=== PATIENT | male | born 1955 | race African-American/Black ===

== ENCOUNTER 2020-11-24 16:54 | Emergency (ER) | payer OTHER ==
--- OUTSIDE RECORDS SUMMARY | 2020-11-24 16:57 | XMS REPORT | Continuity of Care Document ---
:1955 Author Organization [facility] t Address [address] [place] [address] Care Team Providers Name Role Phone Elissa DUKES Primary Care Physician Unavailable Joseph CERVANTES Attending Clinician Unavailable Tavares BASS, A Attending Clinician King SHELIA, Dion Attending Clinician Payers Payer Name Policy Type Policy Number Effective Date Expiration Date S [facility] MEDICARE PART A AND [id number] 2010 B 00:00:00 [place]ICAID [place] [id number] 2012 [employer] 00:00:00 NON SSI Problems This patient has no known problems. Allergies, Adverse Reactions, Alerts This patient has no known allergies or adverse reactions. Medications This patient has no known medications. Vital Signs Vital Name Observation Time Observation Value Comments Source WEIGHT 2020-09-18 11:08:08 135.7 kg Procedures This patient has no known procedures. Encounters Start End Encounter Admission Attending Care Care Encounter Source Date/Time Date/Time Type Type Clinicians Facility Department ID 2020-09-18 2020-09-18 Outpatient NENO CERVANTES MDA MDA [id number] 10:00:00 23:59:00 ORALIA márquez 2020-09-18 2020-09-18 Outpatient NENO CERVANTES MDA MDA [id number] 10:49:19 11:32:41 ORALIA pritchett n 2020-01-11 2020-01-11 [facility] IVONNE Cahpin [id number] 07:56:08 10:29:17 ne Visit Oralia Le [id number] [place] [id number] [facility] [phone] [facility] 231 [facility] 2020-01-02 2020-01-02 [facility] [id number] 00:00:00 00:00:00 [place] [id number] [place] [id number] Professio [phone] critical access hospital 044 [facility] 2019-12-25 2019-12-25 [facility] [id number] 00:00:00 00:00:00 [place] [id number] [place] [id number] Professio [phone] [address] 2019-04-25 2019-04-25 [facility] [id number] 00:00:00 00:00:00 C [place] [id number] [place] [id number] [phone] [id number] Results This patient has no known results.
[2020-11-24] MEDS ORDERED: NA CHLORIDE 0.9% 1,000 ML ONE (19:55)
[2020-11-24] MEDS ORDERED: ONDANSETRON 4 MG/2 ML VIAL ONE (19:55)
[2020-11-24 20:15] LABS: Absolute Lymphocytes (CBC) 0.1 K/uL (0.7-4.9); Basophils % 0.3 % (0-1.3); Hematocrit 43.2 % (39.6-49.0); Lymphocytes % 1.7 % (15.3-44.8)
[2020-11-24 20:20] LABS: Albumin 3.5 g/dL (3.4-5.0); Bilirubin Direct 0.3 mg/dL (0-0.2); Bilirubin Total 1.1 mg/dL (0.2-1.0); Potassium 3.9 mmol/L (3.5-5.1); Protein, Total 7.7 g/dL (6.4-8.2)
--- NOTE | 2020-11-24 20:56 | EDPHYS ---
Physician Documentation [facility] Name: Marbin Montero Age: 65 yrs Sex: Male : 1955 Arrival Date: 11/24/2020 Time: 16:56 Bed 27 Private MD: ALICIA JACKSON ED Physician Cristiano Mayer HPI: 11/24 20:10 This 65 yrs old Black Male presents to ER via Wheelchair with complaints of kb Vomiting/Diarrhea. 20:10 The patient presents to the emergency department with nausea, vomiting, diarrhea. kb Onset: The symptoms/episode began/occurred yesterday. Possible causes: unknown. The symptoms are aggravated by nothing. The symptoms are alleviated by nothing. Associated signs and symptoms: Pertinent positives: diarrhea, nausea, vomiting. Severity of symptoms: At their worst the symptoms were moderate in the emergency department the symptoms are unchanged. The patient has not experienced similar symptoms in the past. The patient has not recently seen a physician. Pt reports n/v/d since yesterday. States it seems like he is passing water from his rearend and when he vomits it looks like water too. Denies abd pain or fever. Historical: - Allergies: 17:39 No Known Allergies; ca1 - Home Meds: 17:39 lisinopril 10 mg Oral tab 2 tabs once daily [Active]; atorvastatin 40 mg oral tab 1 tab ca1 once daily [Active]; Xarelto 20 mg oral tab 1 tab once daily [Active]; metoprolol tartrate 100 mg Oral tab 1 tab 2 times per day [Active]; levothyroxine 50 mcg tab 1 tab once daily [Active]; - PMHx: 17:39 Hypertension; High Cholesterol; Thyroid problem; ca1 - Immunization history:: Flu vaccine is not up to date. - Social history:: Smoking status: Patient denies any tobacco usage or history of. ROS: 20:12 Constitutional: Negative for fever, chills, and weight loss, Cardiovascular: Negative kb for chest pain, palpitations, and edema, Respiratory: Negative for shortness of breath, cough, wheezing, and pleuritic chest pain, Back: Negative for injury and pain, MS/Extremity: Negative for injury and deformity, Skin: Negative for injury, rash, and discoloration, Neuro: Negative for headache, weakness, numbness, tingling, and seizure. 20:12 Abdomen/GI: Positive for nausea, vomiting, and diarrhea, Negative for abdominal pain. Exam: 20:12 Constitutional: This is a well developed, well nourished patient who is awake, alert, kb and in no acute distress. Head/Face: Normocephalic, atraumatic. Chest/axilla: Normal chest wall appearance and motion. Cardiovascular: Regular rate and rhythm with a normal S1 and S2. No gallops, murmurs, or rubs. No pulse deficits. Respiratory: Lungs have equal breath sounds bilaterally, clear to auscultation. No rales, rhonchi or wheezes noted. No increased work of breathing, no retractions or nasal flaring. Abdomen/GI: Soft, non-tender, with normal bowel sounds. No distension. No guarding or rebound. No evidence of tenderness throughout. Skin: Warm, dry with normal turgor. Normal color with no rashes, no lesions, and no evidence of cellulitis. MS/ Extremity: Pulses equal, no cyanosis. Neurovascular intact. Full, normal range of motion. Neuro: Awake and alert, GCS 15, oriented to person, place, time, and situation. Cranial nerves II-XII grossly intact. Moves all extremities. Sensory grossly intact. Cerebellar exam normal. Normal gait. Vital Signs: 17:34 BP 93 / 66; Pulse 82; Resp 16 S; Temp 97.6(TE); Pulse Ox 96% on R/A; Weight 133.81 kg ca1 (R); Height 6 ft. 2 in. (187.96 cm) (R); Pain 0/10; 20:34 BP 96 / 73; Pulse 80; Resp 19; Pulse Ox 99% ; rr5 21:20 BP 101 / 62; Pulse 85; Resp 17; Pulse Ox 99% ; rr5 17:34 Body Mass Index 37.88 (133.81 kg, 187.96 cm) ca1 MDM: 18:57 Patient medically screened. kb 20:11 Data reviewed: vital signs, nurses notes. Data interpreted: Pulse oximetry: on room air kb is 96 %. Interpretation: normal. 20:31 Counseling: I had a detailed discussion with the patient and/or guardian regarding: the kb historical points, exam findings, and any diagnostic results supporting the discharge/admit diagnosis, lab results, the need for outpatient follow up, a family practitioner, to return to the emergency department if symptoms worsen or persist or if there are any questions or concerns that arise at home. 11/24 19:32 Order name: Basic Metabolic Panel 11/24 19:32 Order name: CBC with Diff kb 11/24 19:32 Order name: Hepatic Function kb 11/24 19:32 Order name: Lipase kb 11/24 20:20 Order name: Basic Metabolic Panel; Complete Time: 20:21 EDMS 11/24 20:20 Order name: Liver (Hepatic) Function; Complete Time: 20:21 EDMS 11/24 19:32 Order name: IV Saline Lock; Complete Time: 20:06 kb 11/24 19:32 Order name: Labs collected and sent; Complete Time: 20: kb 11/24 20:20 Order name: Lipase; Complete Time: 20:21 EDMS 11/24 20:24 Order name: CBC with Automated Diff EDMS Administered Medications: 20:00 Drug: NS 0.9% 1000 ml Route: IV; Rate: 1000 ml; Site: right wrist; rr5 21:05 Follow up: Response: No adverse reaction; IV Status: Completed infusion; IV Intake: rr5 1000ml 20:00 Drug: Zofran (Ondansetron) 4 mg Route: IVP; Site: right wrist; rr5 21:00 Follow up: Response: No adverse reaction rr5 Disposition: 11/25 19:56 Co-signature as Attending Physician, Cristiano Mayer MD I agree with the assessment and armand plan of care. Disposition: 11/24/20 20:55 Discharged to Home. Impression: Nausea and vomiting, Diarrhea, unspecified. - Condition is Stable. - Discharge Instructions: Viral Gastroenteritis, Adult, Cluy-tx-Gvki, Nausea and Vomiting, Adult, Uxcc-pb-Whhm, Diarrhea, Adult, Gdqc-wh-Havm. - Prescriptions for Zofran 4 mg Oral Tablet - take 1 tablet by ORAL route every 6 hours As needed; 20 tablet. - Medication Reconciliation Form, Thank You Letter, Antibiotic Education, Prescription Opioid Use form. - Follow up: Emergency Department; When: As needed; Reason: Worsening of condition. Follow up: Private Physician; When: 2 - 3 days; Reason: Recheck today's complaints, Continuance of care, Re-evaluation by your physician. Signatures: Dispatcher [employer] EDOra Dye FNP-C SIGNAL WORKER HELPER-Cristiano Bermeo MD MD cha Roque, Raymond, RN RN rr5 Lauryn Page RN RN ca1 Corrections: (The following items were deleted from the chart) 11/24 21:25 20:55 11/24/2020 20:55 Discharged to Home. Impression: Nausea and vomiting; Diarrhea, rr5 unspecified. Condition is Stable. Discharge Instructions: Viral Gastroenteritis, Adult, Niwf-cx-Yffi, Nausea and Vomiting, Adult, Rmib-xj-Mqst, Diarrhea, Adult, Yfeh-nh-Uapv. Prescriptions for Zofran 4 mg Oral Tablet - take 1 tablet by ORAL route every 6 hours As needed; 20 tablet. and Forms are Medication Reconciliation Form, Thank You Letter, Antibiotic Education, Prescription Opioid Use. Follow up: Emergency Department; When: As needed; Reason: Worsening of condition. Follow up: Private Physician; When: 2 - 3 days; Reason: Recheck today's complaints, Continuance of care, Re-evaluation by your physician. kb
--- NOTE | 2020-11-24 20:56 | ER ---
Nurse's Notes [facility] Name: Marbin Montero Age: 65 yrs Sex: Male : 1955 Arrival Date: 11/24/2020 Time: 16:56 Bed 27 Private MD: ALICIA JACKSON Diagnosis: Nausea and vomiting;Diarrhea, unspecified Presentation: 11/24 17:34 Chief complaint: Patient states: Vomiting and diarrhea started this morning. ca1 Coronavirus screen: Client denies travel out of the [place] in the last 14 days. diarrhea, vomiting. Client presents with at least one sign or symptom that may indicate coronavirus-19. Standard/surgical mask placed on the client. Provider contacted for isolation considerations. Ebola Screen: Patient negative for fever greater than or equal to 101.5 degrees Fahrenheit, and additional compatible Ebola Virus Disease symptoms Patient denies exposure to infectious person. Patient denies travel to an Ebola-affected area in the 21 days before illness onset. No symptoms or risks identified at this time. Initial Sepsis Screen: Does the patient meet any 2 criteria? No. Patient's initial sepsis screen is negative. Does the patient have a suspected source of infection? No. Patient's initial sepsis screen is negative. Risk Assessment: Do you want to hurt yourself or someone else? Patient reports no desire to harm self or others. Onset of symptoms was November 24, 2020. 17:34 Method Of Arrival: Wheelchair ca1 17:34 Acuity: OSCAR 3 ca1 Historical: - Allergies: 17:39 No Known Allergies; ca1 - Home Meds: 17:39 lisinopril 10 mg Oral tab 2 tabs once daily [Active]; atorvastatin 40 mg oral tab 1 tab ca1 once daily [Active]; Xarelto 20 mg oral tab 1 tab once daily [Active]; metoprolol tartrate 100 mg Oral tab 1 tab 2 times per day [Active]; levothyroxine 50 mcg tab 1 tab once daily [Active]; - PMHx: 17:39 Hypertension; High Cholesterol; Thyroid problem; ca1 - Immunization history:: Flu vaccine is not up to date. - Social history:: Smoking status: Patient denies any tobacco usage or history of. Screenin:30 Abuse screen: Denies threats or abuse. Denies injuries from another. Nutritional rr5 screening: No deficits noted. Tuberculosis screening: No symptoms or risk factors identified. Fall Risk IV access (20 points). Total Bonner Fall Scale indicates No Risk (0-24 pts). Assessment: 19:30 General: Appears in no apparent distress. comfortable, Behavior is calm, cooperative, rr5 appropriate for age. Pain: Denies pain. Neuro: Level of Consciousness is awake, alert, obeys commands, Oriented to person, place, time. Cardiovascular: Capillary refill < 3 seconds Patient's skin is warm and dry. Respiratory: Airway is patent Respiratory effort is even, unlabored, Respiratory pattern is regular, symmetrical. GI: Abdomen is round non-distended, Reports diarrhea, vomiting. : No signs and/or symptoms were reported regarding the genitourinary system. EENT: No signs and/or symptoms were reported regarding the EENT system. Derm: Skin is intact, is healthy with good turgor, Skin temperature is warm. Musculoskeletal: Capillary refill < 3 seconds. 20:34 Reassessment: Patient appears in no apparent distress at this time. Patient is alert, rr5 oriented x 3, equal unlabored respirations, skin warm/dry/pink. awaiting for results. 21:20 Reassessment: Patient appears in no apparent distress at this time. Patient is alert, rr5 oriented x 3, equal unlabored respirations, skin warm/dry/pink. discharge instruction given and explained without complaints made. Vital Signs: 17:34 BP 93 / 66; Pulse 82; Resp 16 S; Temp 97.6(TE); Pulse Ox 96% on R/A; Weight 133.81 kg ca1 (R); Height 6 ft. 2 in. (187.96 cm) (R); Pain 0/10; 20:34 BP 96 / 73; Pulse 80; Resp 19; Pulse Ox 99% ; rr5 21:20 BP 101 / 62; Pulse 85; Resp 17; Pulse Ox 99% ; rr5 17:34 Body Mass Index 37.88 (133.81 kg, 187.96 cm) ca1 ED Course: 16:56 Patient arrived in ED. am2 16:56 ALICIA JACKSON is Private Physician. am2 17:36 Triage completed. ca1 17:39 Arm band placed on right wrist. ca1 18:26 Ora Renteria FNP-C [facility]. kb 18:26 Cristiano Mayer MD is Attending Physician. kb 19:30 Patient has correct armband on for positive identification. Placed in gown. Bed in low rr5 position. Call light in reach. Pulse ox on. NIBP on. 19:35 Solomon Maurer, RN is Primary Nurse. rr5 20:00 Inserted saline lock: 20 gauge in right wrist, using aseptic technique. Blood collected.rr5 21:24 No provider procedures requiring assistance completed. IV discontinued, intact, rr5 bleeding controlled, No redness/swelling at site. Pressure dressing applied. Administered Medications: 20:00 Drug: NS 0.9% 1000 ml Route: IV; Rate: 1000 ml; Site: right wrist; rr5 21:05 Follow up: Response: No adverse reaction; IV Status: Completed infusion; IV Intake: rr5 1000ml 20:00 Drug: Zofran (Ondansetron) 4 mg Route: IVP; Site: right wrist; rr5 21:00 Follow up: Response: No adverse reaction rr5 Intake: 21:05 IV: 1000ml; Total: 1000ml. rr5 Outcome: 20:55 Discharge ordered by MD. kb 21:24 Discharged to home ambulatory. rr5 21:24 Condition: stable 21:24 Discharge instructions given to patient, Instructed on discharge instructions, follow up and referral plans. medication usage, Demonstrated understanding of instructions, follow-up care, medications, Prescriptions given X 1. 21:25 Patient left the ED. rr5 Signatures: Ora Renteria, PRE PRESS MANAGER-C PRE PRESS MANAGER-CkJessica Ryan am2 Solomon Maurer, RN RN rr5 Lauryn Page RN RN ca1
[2020-11-24 21:35] LABS: Blood Morphology Comment NOT SEEN (NOT SEEN); Platelet Estimate DECR; White Blood Cell Scan OK (OK)
[2020-11-24 22:57] VITALS: TEMP 97.6
[2020-11-24 22:58] VITALS: BP 96/73; O2SAT 99
== END 2020-11-24 21:25 | disposition home or self-care (01) ==
LOC: ER 16:54
DX: R19.7 Diarrhea, unspecified (principal); I10 Essential (primary) hypertension; E78.00 Pure hypercholesterolemia, unspecified; E07.9 Disorder of thyroid, unspecified; Z79.01 Long term (current) use of anticoagulants
CPT/HCPCS: 96361; 85025; 80048; 36415; 80076; 83690; 96374; 99284; J7030; J2405

== ENCOUNTER 2022-02-22 18:35 | Inpatient (IN) | payer OTHER ==
--- OUTSIDE RECORDS SUMMARY | 2022-02-22 18:39 | XMS REPORT | Continuity of Care Document ---
:1955 Author Organization [facility] t Address [address] [place] [address] Care Team Providers Name Role Phone [phone] Primary Care Physician Unavailable Bhumi CHAPIN Attending Clinician Unavailable Joseph CERVANTES Attending Clinician Unavailable Bhumi Chapin MD Attending Clinician TEJAL Attending Clinician Unavailable KEIRA Attending Clinician Unavailable Dion Bonilla MD Attending Clinician Payers Payer Name Policy Type Policy Number Effective Date Expiration Date S ource MEDICARE PART A AND [id number] 2010 B 00:00:00 [place]ICAID [place] [id number] 2012 TRADITIONAL STAR 00:00:00 NON SSI MEDICARE PART A \T\ [id number] 2010 B 00:00:00 MEDICAID [facility] [id number] 2018 00:00:00 Problems Condition Condition Condition Status Onset Resolution Last Treating Co mments Source Name Details Category Date Date Treatment Clinician Date 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 09-23 ity of 00:00: [place] [facility] Hyperlipid Hyperlipid Disease Active 0 U nivers emia emia 09-23 ity of 00:00: [place] [facility] Hypertensi Hypertensi Disease Active 2021-0 U nivers on on 09-23 ity of 00:00: [place] [facility] Thyroid Thyroid Disease Active Univers disease disease 09-23 ity of 00:00: [place] [facility] [place] Atrial Atrial Disease Active Univers fibrillati fibrillati 09-23 it y of on on 00:00: [place] [facility] Hypothyroi Hypothyroi Disease Active U nivers dism dism -04 ity of (acquired) (acquired) 00:00: [place] [address] Medical [place] Allergies, Adverse Reactions, Alerts Allergy Allergy Status Severity Reaction(s) Onset Inactive Treating Comm ents Source Name Type Date Date Clinician NO KNOWN Drug Active Univers ALLERGIE Class ity of S [facility] Social History Social Habit Start Date Stop Date Quantity Comments Source Exposure to Not sure [facility] SARS-CoV-2 [facility] (event) Branch Alcohol intake 2021-09-23 2021-09-23 Current [facility] 00:00:00 00:00:00 non-drinker of [facility] alcohol [place] (finding) Tobacco use and 2018-12-21 2018-12-21 Never used Universit y of exposure 00:00:00 00:00:00 [facility] Sex Ass[birth year] Universit y of 00:00:00 00:00:00 [facility] Smoking Status Start Date Stop Date Source Never smoker [facility] Medications Ordered Filled Start Stop Current Ordering Indication Dosage Frequency Signature Comments Components Source Medication Medication Date Date Medication? Clinician (SIG) Name Name valACYclovi Yes [id number] 500mg Take 1 Univers r 500 mg 1-04 tablet by ity of tablet 00:00: mouth 00 daily. Medical Branch levothyroxi Yes [id number] 50ug Take 1 Univers ne 50 mcg 1-04 tablet by ity o f tablet 00:00: mouth [place] 00 every Medical morning. Branch valACYclovi Yes [id number] 500mg Take 1 Univers r 500 mg 1-04 tablet by ity of tablet 00:00: mouth 00 daily. Medical Branch levothyroxi Yes [id number] 50ug Take 1 Univers ne 50 mcg 1-04 tablet by ity o f tablet 00:00: mouth [place] 00 every Medical morning. Branch NIFEdipine Yes 30mg Take 30 mg U nivers XL 30 mg 24 1-03 by mouth. ity of hr tablet 00:00: Medical Branch NIFEdipine 0 Yes 30mg Take 30 mg U nivers XL 30 mg 24 1-03 by mouth. ity of hr tablet 00:00: Medical Branch atorvastati 2021- No 40mg Take 40 mg Univers n 40 mg 09-22 by mouth. ity of tablet 00:00: 00:00 [place] 00 :00 Medical Branch atorvastati 2021- No 40mg Take 40 mg Univers n 40 mg 09-22 by mouth. ity of tablet 00:00: 00:00 [place] 00 :00 Medical Branch VALACYCLOVI 2020-09- No [id number] Take 1 Univers R 500 mg 09-23 tablet by ity o f tablet 00:00[place] VALACYCLOVI 2020-09- No [id number] Take 1 Univers R 500 mg 09-23 tablet by ity o f tablet 00:00[place] daily [place] levothyroxi 2021- No [id number] 50ug Take 1 Univers ne 50 mcg 03-17 tablet by ity of tablet 00:00: 00:00 mouth [place] 00 :00 every Medical morning. Branch levothyroxi 2021- No [id number] 50ug Take 1 Univers ne 50 mcg 03-17 tablet by ity of tablet 00:00: 00:00 mouth [place] 00 :00 every Medical morning. Branch metoprolol 2019-0 Yes [id number] 100mg Take 1 Univers tartrate 4-23 tablet by ity of 100 mg 00:00: mouth 2 [place] tablet 00 (two) Medical times Branch daily. lisinopril 2020-0 Yes [id number] 10mg Take 1 U nivers 10 mg 4-23 tablet by ity of tablet 00:00: mouth 2 [place] 00 (two) Medical times Branch daily. atorvastati 2019-0 Yes [id number] 40mg Take 1 Univers n 40 mg 4-23 tablet by ity of tablet 00:00: mouth at [place] 00 bedtime. Medical Branch rivaroxaban 2019-0 Yes [id number] 20mg Take 1 Univers (XARELTO) 4-23 tablet by ity o f 20 mg 00:00: mouth [place] tablet 00 daily. For Medical atrial Branch fibrillati on. metoprolol 2019-0 Yes [id number] 100mg Take 1 Univers tartrate 4-23 tablet by ity of 100 mg 00:00: mouth 2 [place] tablet 00 (two) Medical times Branch daily. lisinopril 2019- Yes [id number] 10mg Take 1 U nivers 10 mg 4-23 tablet by ity of tablet 00:00: mouth 2 [place] 00 (two) Medical times Branch daily. atorvastati 2019- Yes [id number] 40mg Take 1 Univers n 40 mg 4-23 tablet by ity of tablet 00:00: mouth at [place] 00 bedtime. Medical Branch rivaroxaban Yes [id number] 20mg Take 1 Univers (XARELTO) 4-23 tablet by ity o f 20 mg 00:00: mouth [place] tablet 00 daily. For Medical atrial Branch fibrillati on. Immunizations Ordered Filled Immunization Date Status Comments [facility] e Immunization Name Name SARS-COV-2 COVID-19 2021-01-07 Completed Unive rsity of MODERNA VACCINE 00:00:[facility] [place] SARS-COV-2 COVID-19 2021-01-07 Completed Unive rsity of MODERNA VACCINE 00:00:00 [facility] SARS-COV-2 COVID-19 2020-12-04 Completed Unive rsity of MODERNA VACCINE 00:00:00 [facility] SARS-COV-2 COVID-19 2020-12-04 Completed Unive rsity of MODERNA VACCINE 00:00:00 [facility] Vital Signs Vital Name Observation Time Observation Value Comments Source Systolic blood 2021-09-23 17:27:00 149 mm[Hg] Univer sity of pressure [facility] Diastolic blood 2021-09-23 17:27:00 96 mm[Hg] Unive rsity of pressure [facility] Heart rate 2021-09-23 17:27:00 87 /min [facility] Body temperature 2021-09-23 16:29:00 36.11 Carie [facility] Respiratory rate 2021-09-23 16:29:00 18 /min [facility] Body height 2021-09-23 16:29:00 188 cm [facility] Body weight 2021-09-23 16:29:00 139.98 kg [facility] BMI 2021-09-23 16:29:00 39.62 kg/m2 [facility] Oxygen saturation in 2021-09-23 16:29:00 100 /min University of Arterial blood by [facility] Pulse oximetry Branch WEIGHT 2020-09-18 11:08:08 135.7 kg Procedures This patient has no known procedures. Encounters Start End Encounter Admission Attending Care Care Encounter Source Date/Time Date/Time Type Type Clinicians Facility Department ID 2021-10-23 Outpatient AMRIK ROWLEY [id number] 17:59:44 Anderso n 2021-10-23 Outpatient AMRIK ROWLEY [id number] 17:59:43 Anderso n 2021-10-23 Outpatient AMRIK ROWLEY [id number] 17:59:41 Anderso n 2022-03-16 2022-03-16 Outpatient R [facility] [id number] Univers 10:00:00 10:00:00 [id number] [facility] 2022-03-16 2022-03-16 [id number] [facility] 10:00[facility]00 [facility]00[facility] 2021-10-21 2021-10-21 Outpatient NENO CERVANTES MDA MDA [id number] 15:29:54 15:47:43 ORALIA márquez 2021-10-07 2021-10-07 Outpatient NENO CERVANTES MDA MDA [id number] 15:00:00 15:00:00 ORALIA márquez 2021-09-23 2021-09-23 [facility] [id number] [facility] 10:20:00 11:30:10 ORALIA [facility] 2021-09-23 2021-09-23 Office [place], [facility] [id number] [facility] 10:20:00 11:30:10 Visit Oralia CLARKE [id number] [facility] [id number] Omid MORAN [id number] [address] 2021-09-22 2021-09-22 Outpatient NENO TOURE MDA MDA [id number] 12:15:25 23:59:00 STAR Satinder so n 2021-09-22 2021-09-22 Outpatient NENO TOURE, MDA MDA [id number] 12:37:55 14:29:15 STAR Kimballer so n 2021-03-19 2021-03-19 Outpatient NENO CROCKETT, MDA MDA [id number] 09:52:13 23:59:00 ISIS Lorenz o n 2021-03-19 2021-03-19 Outpatient NENO CROCKETT, MDA MDA [id number] 11:30:44 13:01:33 ISIS Lorenz o n 2020-09-18 2020-09-18 Outpatient NENO CERVANTES, MDA MDA [id number] MD 10:00:00 23:59:00 ORALIAZAINAB Kimballe rso n 2020-09-18 2020-09-18 Outpatient NENO CERVANTES, MDA MDA [id number] 10:49:19 11:32:41 ORALIA Ashley rso n 2020-01-11 2020-01-11 [facility] [id number] 07:56:08 10:29:17 ne Visit Oralia Clarke [id number] [place] [id number] Professio [id number] [address] 2020-01-02 2020-01-02 Refill Chad Sanford [facility] [id number] 00:00:00 00:00:00 [place] [id number] [place] [id number] Professio [id number] [address] 2019-12-25 2019-12-25 Refill Sanford Bonilla [facility] [id number] 00:00:00 00:00:00 [place] [id number] [place] [id number] Professio [id number] [address] 2019-04-25 2019-04-25 Telephone King [facility] [id number] 00:00:00 00:00:00 C [place] [id number] [place] [id number] Results This patient has no known results.
[2022-02-22 21:31] LABS: Potassium 3.5 mmol/L (3.5-5.1); Troponin High Sensitivity 9.9 pg/mL (<58.9)
--- NOTE | 2022-02-22 21:32 | RAD REPORT ---
EXAM DESCRIPTION: RAD - Chest Single View - 02/22/2022 9:23 pm CLINICAL HISTORY: DYSPNEA Chest pain. COMPARISON: Chest Pa And Lat (2 Views) dated 01/06/2016; CHEST PA AND LAT 2 VIEW dated 05/15/2008; PATRICE ST SINGLE VIEW dated 05/14/2008; CHEST SINGLE VIEW dated 05/13/2008 FINDINGS: Portable technique limits examination quality. Mild interstitial prominence bilaterally may indicate a viral infection. The heart is upper limit of normal in size. No displaced fractures.
[2022-02-22 21:42] LABS: Absolute Lymphocytes (CBC) 0.3 K/uL (0.7-4.9); Hematocrit 38.5 % (39.6-49.0); Lymphocytes % 7.5 % (15.3-44.8); MPV 8.7 fL (7.6-11.3); RBC Red Blood Cell Count 4.32 M/uL (4.33-5.43)
[2022-02-22 22:22] LABS: Protime INR 1.27
[2022-02-22 22:33] LABS: Albumin 3.2 g/dL (3.4-5.0); Bilirubin Total 0.6 mg/dL (0.2-1.0); Potassium 3.3 mmol/L (3.5-5.1); Protein, Total 7.2 g/dL (6.4-8.2)
--- NOTE | 2022-02-22 23:04 | EDPHYS ---
Physician Documentation [facility] Name: Marbin Montero Age: 66 yrs Sex: Male : 1955 Arrival Date: 02/22/2022 Time: 18:37 Bed 13 Private MD: ALICIA PHAM ED Physician Kamaljit Yoder HPI: 02/22 22:19 This 66 yrs old Black Male presents to ER via Ambulatory with complaints of Cough, ms3 Wheezing > 1 Year. 22:19 The patient or guardian reports cough, that is constant, difficulty breathing. The ms3 patient or guardian reports Runny nose. Onset: The symptoms/episode began/occurred 9 day(s) ago. Severity of symptoms: At their worst the symptoms were moderate, in the emergency department the symptoms are unchanged. Modifying factors: The symptoms are alleviated by nothing, the symptoms are aggravated by nothing. Associated signs and symptoms: The patient has no apparent associated signs or symptoms. Historical: - Allergies: 18:49 No Known Allergies; ph - PMHx: 18:49 High Cholesterol; Hypertension; Thyroid problem; ph - Immunization history:: Adult Immunizations unknown. - Social history:: Smoking status: Patient denies any tobacco usage or history of. ROS: 22:19 Constitutional: Negative for fever, and chills. Eyes: Negative for injury, pain, ms3 redness, and discharge. 22:19 Cardiovascular: Negative for chest pain, and palpitations. 22:19 MS/Extremity: Negative for injury and deformity, Skin: Negative for injury, rash, and discoloration. 22:19 ENT: Positive for rhinorrhea. 22:19 Respiratory: Positive for shortness of breath. 22:19 All other systems are negative. Exam: 20:25 ECG was reviewed by the Attending Physician. ms3 22:19 Constitutional: This is a well developed, well nourished patient who is awake, alert, ms3 and in no acute distress. Head/Face: Normocephalic, atraumatic. Eyes: Pupils equal round and reactive to light, extra-ocular motions intact. Lids and lashes normal. Conjunctiva and sclera are non-icteric and not injected. Periorbital areas with no swelling, redness, or edema. ENT: Nares patent. No nasal discharge, no septal abnormalities noted. Tympanic membranes are normal and external auditory canals are clear. Oropharynx with no redness, swelling, or masses, exudates, or evidence of obstruction, uvula midline. Mucous membranes moist. Chest/axilla: Normal chest wall appearance and motion. Nontender with no deformity. Abdomen/GI: Soft, non-tender, with normal bowel sounds. No distension or tympany. No guarding or rebound. No evidence of tenderness throughout. 22:19 Cardiovascular: Regular rate and rhythm with a normal S1 and S2. No gallops, murmurs, or rubs. Normal PMI, no JVD. No pulse deficits. Respiratory: Lungs have equal breath sounds bilaterally, clear to auscultation and percussion. No rales, rhonchi or wheezes noted. No increased work of breathing, no retractions or nasal flaring. Skin: Warm, dry with normal turgor. Normal color with no rashes, no lesions, and no evidence of cellulitis. MS/ Extremity: Pulses equal, no cyanosis. Neurovascular intact. Full, normal range of motion. Psych: Awake, alert, with orientation to person, place and time. Behavior, mood, and affect are within normal limits. Vital Signs: 18:46 BP 133 / 91; Pulse 95; Resp 20; Temp 98.9; Pulse Ox 96% on R/A; Weight 131.54 kg; ph Height 6 ft. 2 in. (187.96 cm); 21:31 BP 140 / 85; Pulse 102; Resp 25; Pulse Ox 96% on R/A; ll3 22:44 BP 131 / 80; Pulse 95; Resp 28; Pulse Ox 96% on R/A; ll3 18:46 Body Mass Index 37.23 (131.54 kg, 187.96 cm) ph MDM: 19:36 Patient medically screened. ms3 22:19 Differential Diagnosis: Bronchitis Influenza Upper Respiratory Infection Other CHF. ms3 23:54 Data reviewed: vital signs, nurses notes, lab test result(s), EKG, radiologic studies, ms3 and as a result, I will continue to observe the patient. Data interpreted: Pulse oximetry:. 23:54 Counseling: I had a detailed discussion with the patient and/or guardian regarding: the ms3 historical points, exam findings, and any diagnostic results supporting the discharge/admit diagnosis, lab results, radiology results, the need for further work-up and treatment in the hospital. ED course: Discussed plan with MEHRDAD Sandoval and she accepts patient on behalf of Dr Kennedy. Discussed plan for observation with patient and his . They understand/ agree with plan. All questions answered.. 02/22 19:36 Order name: Basic Metabolic Panel; Complete Time: 21:36 ms3 02/22 19:36 Order name: CBC with Diff; Complete Time: 22:52 ms3 02/22 19:36 Order name: NT PRO-BNP; Complete Time: 21:36 ms3 02/22 19:36 Order name: Troponin HS; Complete Time: 21:36 ms3 02/22 21:26 Order name: SARS-COV-2 RT PCR; Complete Time: 22:52 EDMS 02/22 19:36 Order name: XRAY Chest (1 view); Complete Time: 21:36 ms3 02/22 19:36 Order name: EKG; Complete Time: 19:37 ms3 02/22 21:26 Order name: Influenza Screen (A ; Complete Time: 22:52 EDMS 02/22 21:37 Order name: Blood Culture Adult (2) ms3 02/22 21:37 Order name: CMP; Complete Time: 22:52 ms3 02/22 21:37 Order name: Lactate; Complete Time: 22:52 ms3 02/22 21:37 Order name: Protime (+inr); Complete Time: 22:52 ms3 02/22 21:37 Order name: Ptt, Activated; Complete Time: 22:52 ms3 02/22 19:36 Order name: Cardiac monitoring; Complete Time: 20:26 ms3 02/22 19:36 Order name: EKG - Nurse/Tech; Complete Time: 20:26 ms3 02/22 19:36 Order name: IV Saline Lock; Complete Time: 21:12 ms3 02/22 19:36 Order name: Labs collected and sent; Complete Time: 21:12 ms3 02/22 19:36 Order name: O2 Per Protocol; Complete Time: 20:26 ms3 02/22 19:36 Order name: O2 Sat Monitoring; Complete Time: 20:26 ms3 02/22 21:37 Order name: Accucheck; Complete Time: 23:54 ms3 02/22 21:37 Order name: IV Saline Lock - Large Bore; Complete Time: 22:08 ms3 EC:25 Rate is 102 beats/min. Rhythm is irregularly irregular. QRS [place] is Normal. Clinical ms3 impression: Atrial Fibrillation and Rapid ventricular rate. Interpreted by me. Administered Medications: No medications were administered Disposition Summary: 02/22/22 23:03 Hospitalization Ordered Hospitalization Status: Observation ms3 Provider: Roge Kennedy ms3 Condition: Stable ms3 Problem: new ms3 Symptoms: are unchanged ms3 Bed/Room Type: Standard ms3 Location: Telemetry/MedSurg (observation)(02/22/22 23:54) sb3 Room Assignment: 406(02/23/22 00:15) wm Diagnosis - Shortness of breath ms3 - Congestive heart failure ms3 - wheezing ms3 Forms: - Medication Reconciliation Form ms3 - SBAR form ms3 Signatures: Dispatcher [employer] EDMS Dalila García RN RN ph Kamaljit Yoder DO DO ms3 Karen Marmolejo Sophia, PA PA sb3 Corrections: (The following items were deleted from the chart) 21:26 21:07 COVID-19/FLU A+B+MOL.LAB.BRZ ordered. EDMS EDMS 23:50 23:03 ms3 sb3 23:51 23:03 Telemetry/MedSurg (observation) ms3 sb3 23:51 23:50 406 sb3 sb3 23:54 23:51 Telemetry/MedSurg (observation) sb3 sb3 23:54 23:51 sb3 sb3 23:54 23:54 406 sb3 sb3 02/23 00:15 06 23:54 sb3 wm 02/23 06:30 06:29 Data reviewed: vital signs, nurses notes, lab test result(s), EKG, radiologic ms3 studies, and as a result, I will continue to observe the patient, ms3 06:30 06:29 Data interpreted: Pulse oximetry: ms3 ms3
--- NOTE | 2022-02-22 23:04 | ER ---
Nurse's Notes [facility] Name: Marbin Montero Age: 66 yrs Sex: Male : 1955 Arrival Date: 02/22/2022 Time: 18:37 Bed 13 Private MD: ALICIA PHAM Diagnosis: Shortness of breath;Congestive heart failure;wheezing Presentation: 02/22 18:46 Chief complaint: Patient states: Fatigue, cough that is productive, stuffy nose, SOB x ph 1 week, wheezing noted in triage, pt able to speak in full sentences. Coronavirus screen: Vaccine status: Patient reports receiving the 2nd dose of the covid vaccine. Ebola Screen: No symptoms or risks identified at this time. Initial Sepsis Screen: Does the patient meet any 2 criteria? No. Patient's initial sepsis screen is negative. Does the patient have a suspected source of infection? No. Patient's initial sepsis screen is negative. Risk Assessment: Do you want to hurt yourself or someone else? Patient reports no desire to harm self or others. Onset of symptoms was February 22, 2022. 18:46 Method Of Arrival: Ambulatory ph 18:46 Acuity: OSCAR 3 ph Triage Assessment: 19:45 General: Appears comfortable, Behavior is calm, cooperative. Respiratory: Onset: The ll3 symptoms/episode began/occurred at an unknown time. the patient has mild shortness of breath. Respiratory: Respiratory effort is even, unlabored, Respiratory pattern is tachypnea. Historical: - Allergies: 18:49 No Known Allergies; ph - PMHx: 18:49 High Cholesterol; Hypertension; Thyroid problem; ph - Immunization history:: Adult Immunizations unknown. - Social history:: Smoking status: Patient denies any tobacco usage or history of. Screenin:45 Abuse screen: Denies threats or abuse. Nutritional screening: No deficits noted. ll3 Tuberculosis screening: No symptoms or risk factors identified. Fall Risk No fall in past 12 months (0 pts). No secondary diagnosis (0 pts). IV access (20 points). Ambulatory Aid- None/Bed Rest/Nurse Assist (0 pts). Gait- Normal/Bed Rest/Wheelchair (0 pts) Mental Status- Oriented to own ability (0 pts). Total Bonner Fall Scale indicates No Risk (0-24 pts). Assessment: 19:45 General: Appears comfortable, Behavior is calm, cooperative. Pain: Denies pain. Neuro: ll3 Level of Consciousness is awake, alert, obeys commands, Oriented to person, place, time, situation. Cardiovascular: Rhythm is irregular. Respiratory: Reports cough that is productive, Airway is patent Respiratory effort is even, unlabored, Respiratory pattern is tachypnea Pt states he has been wheezing for years ever since having cancer Breath sounds with wheezes bilaterally. Denies shortness of breath labored breathing, pain with respiration, pain with cough. Derm: Skin is pink, warm \T\ dry. 20:45 Reassessment: No changes from previously documented assessment. Patient and/or family ll3 updated on plan of care and expected duration. Pain level reassessed. Patient is alert, oriented x 3, equal unlabored respirations, skin warm/dry/pink. 22:15 Reassessment: No changes from previously documented assessment. Patient and/or family ll3 updated on plan of care and expected duration. Pain level reassessed. Patient is alert, oriented x 3, equal unlabored respirations, skin warm/dry/pink. Vital Signs: 18:46 BP 133 / 91; Pulse 95; Resp 20; Temp 98.9; Pulse Ox 96% on R/A; Weight 131.54 kg; ph Height 6 ft. 2 in. (187.96 cm); 21:31 BP 140 / 85; Pulse 102; Resp 25; Pulse Ox 96% on R/A; ll3 22:44 BP 131 / 80; Pulse 95; Resp 28; Pulse Ox 96% on R/A; ll3 18:46 Body Mass Index 37.23 (131.54 kg, 187.96 cm) ph ED Course: 18:37 Patient arrived in ED. am2 18:37 ALICIA PHAM is Private Physician. am2 18:44 Al Brunson PA is PHCP. [facility] 18:44 Cristiano Mayer MD is Attending Physician. [facility] 18:49 Triage completed. ph 18:49 Arm band placed on Patient placed in an exam room. ph 19:10 Attending Physician role handed off by Cristiano Mayer MD ms3 19:10 Kamaljit Yoder DO is Attending Physician. ms3 19:20 Kiera Chery, RONALD is Primary Nurse. ll3 19:23 Al Brunson PA is PHCP. [facility] 19:45 Patient has correct armband on for positive identification. Bed in low position. Call ll3 light in reach. Side rails up X 1. Adult w/ patient. 19:45 Client placed on continuous cardiac and pulse oximetry monitoring. NIBP monitoring ll3 applied. 20:55 Missed attempt(s): 22 gauge Bleeding controlled, band aid applied, catheter tip intact. oe 21:05 Inserted saline lock: 20 gauge in left antecubital area, using aseptic technique. Blood oe collected. 21:25 XRAY Chest (1 view) In Process Unspecified. EDMS 23:02 Roge Kennedy is Hospitalizing Provider. ms3 Administered Medications: No medications were administered Medication: 19:45 VIS not applicable for this client. ll3 Outcome: 23:03 Decision to Hospitalize by Provider. ms3 0606 01:16 Patient left the ED. bb Signatures: Dispatcher [employer] EDMS Al Brunson PA PA Zoraida Gutierrez RN RN bb Dalila García RN RN [employer] [place] Jessica Zhou am2 Kamaljit Yoder DO DO ms3 Kiera Chery RN RN ll3 Corrections: (The following items were deleted from the chart) 02/22 21:06 20:55 Missed attempt(s): 22 gauge Bleeding controlled, band aid applied, catheter tip oe intact. oe
--- NOTE | 2022-02-23 00:08 | P.HP ---
Certification for Inpatient Patient admitted to: Observation With expected LOS: <2 Midnights Patient will require the following post-hospital care: None Practitioner: I am a practitioner with admitting privileges, knowledge of patient current condition, hospital course, and medical plan of care. Services: Services provided to patient in accordance with Admission requirements found in Title 42 Section 412.3 of the Code of Federal Regulations Patient History Date of Service: 02/23/22 Reason for admission: Dyspnea History of Present Illness: Patient is a 66-year-old male with past medical history of A. fib, lymphoma in remission, and hypertension who presented to the ED with complaints of cough, shortness of breath, and wheezing for 1 week. Patient is tachypneic upon arrival. CXR showed mild interstitial prominence bilaterally and borderline cardiomegaly. BNP elevated at 463, potassium 3.3, troponin 9.9. When speaking with the patient, he states that he was hospitalized before and had 40 pounds of fluid taken off. He was also audibly wheezing. ED provider wishes to admit patient for observation for cardiac evaluation of possible acute CHF. Allergies No Known Allergies Allergy (Verified 01/06/16 22:23) Home Medications: Atorvastatin Calcium [Lipitor] 40 mg PO BEDTIME 01/06/16 Chlorhexidine 0.12% [Periogard*] 10 ml PO DAILY 01/06/16 Levothyroxine [Synthroid*] 50 mcg PO DAILY 01/06/16 Metoprolol Tartrate [Lopressor] 100 mg PO BID 01/06/16 Potassium Chloride 15 ml PO BID 01/06/16 Valacyclovir [Valtrex*] 500 mg PO DAILY 01/06/16 Rivaroxaban [Xarelto] 20 mg PO DAILY AT SUPPER #30 tablet 01/07/16 - Past Medical/Surgical History Diabetic: No -: Afib -: Hypertension -: Lymphoma in remission Psychosocial/ Personal History: Patient lives at home alone. - Family History Sister -: Hypertension - Social History Smoking Status: Never smoker Alcohol use: No CD- Drugs: No Caffeine use: No Place of Residence: Home Review of Systems Respiratory: Cough, Shortness of Breath, Wheezing Physical Examination - Physical Exam General: Alert, In no apparent distress, Obese HEENT: Atraumatic, PERRLA, EOMI, Sclerae nonicteric Neck: Supple, 2+ carotid pulse no bruit, No LAD, Without JVD or thyroid abnormality Respiratory: Expiratory wheezes Cardiovascular: No edema, Regular rate/rhythm, Normal S1 S2 Gastrointestinal: Normal bowel sounds, No tenderness Musculoskeletal: No tenderness Integumentary: No rashes Neurological: Normal speech, Normal strength at 5/5 x4 extr, Normal tone, Normal affect - Studies Laboratory Data (last 24 hrs) 02/22/22 22:06: PT 14.0 H, INR 1.27, APTT 31.8 02/22/22 22:06: Sodium 141, Potassium 3.3 L, BUN 14, Creatinine 1.09, Glucose 92, Total Bilirubin 0.6, AST 24, ALT 24, Alkaline Phosphatase 41 L 02/22/22 20:45: WBC 4.4, Hgb 12.9 L, Hct 38.5 L, Plt Count 117 L 02/22/22 20:45: Sodium 139, Potassium 3.5, BUN 15, Creatinine 1.17, Glucose 96 Microbiology Data (last 24 hrs): 02/22/22 21:18 Nasopharnyx Influenza Type A Antigen Screen - Final 02/22/22 21:18 Nasopharnyx Influenza Type B Antigen Screen - Final Assessment and Plan - Problems (Diagnosis) (1) Acute CHF (congestive heart failure) Current Visit: Yes Status: Acute Qualifiers: Heart failure type: unspecified Qualified Code(s): I50.9 - Heart failure, unspecified (2) Hypertension Current Visit: Yes Status: Chronic Qualifiers: Hypertension type: primary hypertension Qualified Code(s): I10 - Essential (primary) hypertension (3) Afib Current Visit: Yes Status: Chronic Qualifiers: Atrial fibrillation type: unspecified Qualified Code(s): I48.91 - Unspecified atrial fibrillation (4) Dyspnea Onset Date: 01/07/16 Current Visit: Yes Status: Acute Qualifiers: Dyspnea type: shortness of breath Qualified Code(s): R06.02 - Shortness of breath; R06.00 - Dyspnea, unspecified; R06.01 - Orthopnea (5) History of lymphoma Current Visit: No Status: Chronic - Plan -Cardiology consulted and echo ordered for further evaluation of acute CHF. -Scheduled breathing treatments for wheezing. -Monitor pulse oximetry. -Replace potassium. -Continue home antihypertensives. -Home dose of xarelto for VTE ppx Discharge Plan: Home Plan to discharge in: 24 Hours - Advance Directives Does patient have a Living Will: No Does patient have a Durable POA for Healthcare: No - Code Status/Comfort Care Code Status Assessed: Yes (Full) Critical Care: No Time Spent Managing Pts Care (In Minutes): 50
[2022-02-23 01:17] VITALS: BMI 37.2
[2022-02-23] MEDS ORDERED: ONDANSETRON 4 MG/2 ML VIAL IV PRN (01:19)
[2022-02-23] MEDS ORDERED: ACETAMINOPHEN 500 MG TAB PO PRN (01:19)
[2022-02-23] MEDS: IPRATROPIUM BROM 0.5MG/2.5ML NEB SCH ×4 (02:05→20:10)
[2022-02-23] MEDS: ALBUTEROL 2.5 MG/3 ML NEB SOL NEB SCH ×4 (02:05→20:10)
[2022-02-23] MEDS ORDERED: FUROSEMIDE 20 MG/ 2ML VIAL IV ONE (02:54)
[2022-02-23] MEDS ORDERED: POTASSIUM CL SA 10 MEQ TAB PO ONE ×2 (09:00→09:13)
--- NOTE | 2022-02-23 12:56 | CON ---
Date of Consultation: 02/23/2022 The patient admitted on 02/23/[address] Kennedy. I saw the patient on 02/23/2022. Reason For Consultation: Congestive heart failure. History Of Present Illness: Mr. Montero is 66. Has a history of hypothyroidism, dyslipidemia, chroni c atrial fibrillation for which he takes Xarelto and metoprolol. He is also on Synthroid and Lipitor for the other problem. Came in with coughing and wheezing and shortness of breath. Denied PND, ort hopnea, pedal edema, palpitations, or syncope. Denied any fever or chills. Chest x-ray showed infection. He has been treated for CHF as well as COPD. Past Medical History: As stated above. Allergies: NONE. Review of Systems: Negative. Social History: Negative. Family History: Negative. Medications: Listed earlier. Physical Examination: Vital Signs: He weighed 290 pounds. Vital signs are stable, atrial fibrillation, rate controlled. Afebrile. HEENT: Negative. Neck: Supple with no bruit. Chest: Revealed some expiratory wheezing. No rales. Cardiac: Revealed atrial fibrillation. No murmurs, gallops, or rubs. Abdomen: Benign. Extremities: Revealed no edema. Skin: Dry and intact. Pulses are present distally bilaterally. Neurologic: He was nonfocal. Diagnostic Data: Showed a BNP of 463, potassium 3.3, otherwise unremarkable. Impression And Plan: I believe Mr. Montero has more of chronic obstructive pulmonary disease exacerba tion than congestive heart failure. I would treat him appropriately with Lasix and inhalers, continu e Xarelto, metoprolol, Thyroid, and Lipitor for his atrial fibrillation, hypothyroidism, and dyslipid emia. Echocardiogram is pending. We will see what that shows. He will eventually as an outpatient Lexiscan to rule out coronary artery disease. We will continue to follow him. TAMI/SIENNA Voice ID: [id number] Report ID: [id number]
--- NOTE | 2022-02-23 13:21 | EKG ---
Test Date: 2022-02-22 Test Time: 20:25:07 Pressure Steamer Tender: ERIC MEASUREMENT RESULTS: Intervals: Rate: 102 NH: QRSD: 82 QT: 354 QTc: 461 Orr: P: NH: QRS: 3 T: 13 INTERPRETIVE STATEMENTS: Atrial fibrillation with rapid ventricular response Nonspecific ST abnormality Abnormal ECG Compared to ECG 01/07/2016 07:16:27 Possible ischemia no longer present Prolonged QT interval no longer present ST (T wave) deviation still present Electronically Signed On 02-23-22 13:19:06 CDT by Prashant Small
--- NOTE | 2022-02-23 14:02 | ECHO ---
HEIGHT: 6 ft 2 in WEIGHT: 290 lb 0 oz DATE OF STUDY: 02/23/[address]: Elmira Peguero 2-DIMENSIONAL: YES M.MODE: YES DOPPLER: YES COLOR FLOW: YES TDS: NO PORTABLE: YES DEFINITY: NO BUBBLE STUDY: NO DIAGNOSIS: ONSET CONGESTIVE HEART FAILURE CARDIAC HISTORY: CATHERIZATION: SURGERY: PROSTHETIC VALVE: PACEMAKER: MEASUREMENTS (cm) DIASTOLIC (NORMALS) SYSTOLIC (NORMALS) IVSd 0.9 (0.6-1.2) LA Diam 4.3 (1.9-4.0) LVEF 65% LVIDd 5.3 (3.5-5.7) LVIDs 2.8 (2.0-3.5) %FS 48% LVPWd 1.1 (0.6-1.2) Ao Diam 3.1 (2.0-3.7) 2 DIMENSIONAL ASSESSMENT: RIGHT ATRIUM: NORMAL LEFT ATRIUM: ENLARGED RIGHT VENTRICLE: NORMAL LEFT VENTRICLE: NORMAL TRICUSPID VALVE: NORMAL MITRAL VALVE: PULMONIC VALVE: NORMAL AORTIC VALVE: NORMAL PERICARDIAL EFFUSION: NONE AORTIC ROOT: NORMAL LEFT VENTRICULAR WALL MOTION: NORMAL DOPPLER/COLOR FLOW: MILD MITRAL, AORTIC AND TRICUSPID REGURGITATION. COMMENTS: NORMAL LEFT VENTRICULAR EJECTION FRACTION 60-65%. NORMAL WALL MOTION. ATRIAL FIBRILLATION. MILD MITRAL, AORTIC AND TRICUSPID REGURGITATION. TECHNOLOGIST: Norma PEÑA
[2022-02-23 14:14] LABS: Urine Appearance Clear (Clear); Urine Bilirubin Negative (Negative); Urine Blood 2+ (Negative); Urine Color Yellow (Yellow); Urine Glucose Negative (Negative); Urine Protein Negative (Negative); Urine Urobilinogen 0.2 mg/dL (0.2-1.0); Urine pH 5.5 (5.0-7.0)
[2022-02-23 14:40] LABS: Urine Microscopic Reflex ORDER UMIC
[2022-02-23 14:44] LABS: Urine Bacteria <20 /HPF (NONE SEEN)
[2022-02-23] MEDS ORDERED: RIVAROXABAN 20 MG TABLET PO SCH (17:00)
[2022-02-23] MEDS: KCL 20 MEQ/100 mL IVPB 20 MEQ/100 ML BAG IV SCH ×2 (18:05→22:20)
--- NOTE | 2022-02-23 18:33 | P.PN ---
Date of Service: 02/23/22 Patient seen and examined. Patient noted to be wheezy. He states he feels better compared to yesterday. Diagnosis: COPD exacerbation. I believe patient's symptoms more related to COPD exacerbation than CHF. Continue bronchodilators. Add IV steroid. Continue Lasix. Cardiology input appreciated.
[2022-02-23] MEDS: METHYLPREDNISOLONE 40 MG INJ IV SCH (19:56)
[2022-02-23] MEDS ORDERED: ATORVASTATIN 40 MG TAB PO SCH (21:00)
[2022-02-24] MEDS: KCL 20 MEQ/100 mL IVPB 20 MEQ/100 ML BAG IV SCH (00:29)
[2022-02-24] MEDS: METHYLPREDNISOLONE 40 MG INJ IV SCH ×2 (00:29→06:06)
[2022-02-24] MEDS: ALBUTEROL 2.5 MG/3 ML NEB SOL NEB SCH ×2 (01:00→08:00)
[2022-02-24] MEDS: IPRATROPIUM BROM 0.5MG/2.5ML NEB SCH ×2 (01:00→08:00)
[2022-02-24 03:42] LABS: Hematocrit 41.9 % (39.6-49.0); Lymphocytes % 8.1 % (15.3-44.8); MPV 8.5 fL (7.6-11.3); RBC Red Blood Cell Count 4.64 M/uL (4.33-5.43)
[2022-02-24 03:43] LABS: Absolute Lymphocytes (CBC) 0.2 K/uL (0.7-4.9)
[2022-02-24 03:55] LABS: Potassium 3.9 mmol/L (3.5-5.1)
[2022-02-24] MEDS ORDERED: LEVOTHYROXINE SOD 0.05 MG TABLET PO SCH (06:00)
[2022-02-24 06:35] VITALS: O2SAT 95
[2022-02-24] MEDS ORDERED: POTASSIUM CL SA 10 MEQ TAB PO SCH (09:00)
[2022-02-24] MEDS ORDERED: FUROSEMIDE 20 MG/ 2ML VIAL IV SCH (09:00)
[2022-02-24 12:52] VITALS: BP 125/71; TEMP 97
--- NOTE | 2022-02-24 22:08 | P.DS ---
Admission Date: 02/23/22 Discharge Date: 02/24/22 Disposition: ROUTINE DISCHARGE Discharge Condition: GOOD Reason for Admission: Dyspnea Consultations: Cardiology - Dr. Garcia Brief History of Present Illness: 66-year-old male with past medical history of A. fib, lymphoma in remission, and hypertension who presented to the ED with complaints of cough, shortness of breath, and wheezing for 1 week. Patient is tachypneic upon arrival. CXR showed mild interstitial prominence bilaterally and borderline cardiomegaly. BNP elevated at 463, potassium 3.3, troponin 9.9. When speaking with the patient, he states that he was hospitalized before and had 40 pounds of fluid taken off. He was also audibly wheezing. ED provider wishes to admit patient for observation for cardiac evaluation of possible acute CHF. Hospital Course: Patient's shortness of breath was evaluated by chest x-ray, heart enzymes (troponins), bloodwork. Cardiology was consulted. Patient's symptoms and exam were most consistent with a mild COPD exacerbation, likely triggered from a viral bronchitis. There was a small hint of fluid in the lungs, but felt to be less likely of the main cause of symptoms. Patient improved with treatment for both, with steroids, lasix, and inhaler. Patient did not require oxygen supplementation. He was ambulating without issue in his room. Discharged with treatment for COPD exacerbation - prednisone and albuterol inhaler. For the small amount of fluid in lungs - echocardiogram was normal, and discharged home with short course of furosemide (fluid pill). To take potassium replacement while on the fluid pill. Follow up with PCP within 1 week. Recommend repeat labwork (basic metabolic panel) to evaluate kidney function and electrolytes. Follow up with Cardiology - Dr. Garcia in the next 1-2 weeks. May need to undergo cardiac stress testing in the near future. Vital Signs/Physical Exam: Temp Pulse Resp BP Pulse Ox 97.0 F 81 16 125/71 97 02/24/22 12:00 02/24/22 12:00 02/24/22 12:00 02/24/22 12:02/24/22 12:00 General: Alert, In no apparent distress Neck: Supple Respiratory: Diminished, Expiratory wheezes Cardiovascular: Regular rate/rhythm Gastrointestinal: Soft and benign, Non-distended, No tenderness Musculoskeletal: No tenderness Integumentary: No significant lesion Neurological: Normal speech, Normal affect Laboratory Data at Discharge: WBC 2.7 K/uL (4.3-10.9) L D 02/24/22 03:22 Hgb 13.8 g/dL (13.6-17.9) 02/24/22 03:22 Hct 41.9 % (39.6-49.0) 02/24/22 03:22 Plt Count 109 K/uL (152-406) L 02/24/22 03:22 PT 14.0 SECONDS (9.5-12.5) H 02/22/22 22:06 INR 1.27 02/22/22 22:06 APTT 31.8 SECONDS (24.3-36.9) 02/22/22 22:06 Sodium 140 mmol/L (136-145) 02/24/22 03:22 Potassium 3.9 mmol/L (3.5-5.1) 02/24/22 03:22 BUN 16 mg/dL (7-18) 02/24/22 03:22 Creatinine 1.22 mg/dL (0.55-1.3) 02/24/22 03:22 Glucose 186 mg/dL (74-106) H 02/24/22 03:22 Magnesium 2.0 mg/dL (1.8-2.4) 02/24/22 03:22 Total Bilirubin 0.6 mg/dL (0.2-1.0) 02/22/22 22:06 AST 24 U/L (15-37) 02/22/22 22:06 ALT 24 U/L (12-78) 02/22/22 22:06 Alkaline Phosphatase 41 U/L (45-117) L 02/22/22 22:06 Home Medications: Atorvastatin Calcium [Lipitor] 40 mg PO BEDTIME 01/06/16 Levothyroxine [Synthroid*] 50 mcg PO [id number] 01/06/16 Metoprolol Tartrate [Lopressor] 100 mg PO BID 01/06/16 Valacyclovir [Valtrex*] 500 mg PO DAILY 01/06/16 Rivaroxaban [Xarelto] 20 mg PO DAILY AT SUPPER #30 tablet 01/07/16 Lisinopril [Zestril] 1 tab PO DAILY 02/23/22 Nifedipine [Nifedipine ER] 1 tab PO DAILY 02/23/22 Albuterol Inhaler [Ventolin Inhaler*] 2 puff IH Q6H PRN #1 hfa.aer.ad 02/24/22 Furosemide [Lasix] 20 mg PO DAILY 14 Days #14 tab 02/24/22 Potassium Chloride [Klor-Con M20] 20 meq PO DAILY 14 Days #14 tab.er.prt 02/24/22 predniSONE [Deltasone] 20 mg PO BID 4 Days #8 tab 02/24/22 New Medications: Potassium Chloride [Klor-Con M20] 20 meq PO DAILY 14 Days #14 tab.er.prt Furosemide [Lasix] 20 mg PO DAILY 14 Days #14 tab predniSONE [Deltasone] 20 mg PO BID 4 Days #8 tab Albuterol Inhaler [Ventolin Inhaler*] 2 puff IH Q6H PRN #1 hfa.aer.ad PRN Reason: Shortness Of Breath Followup: Manuel Garcia MD [ACTIVE - CAN ADMIT] - 1-2 Weeks (call for apointment) Oralia Pretty MD [Primary Care Provider] - 1-2 Weeks (call for an apointment) Time spent managing pt's care (in minutes): 40
== END 2022-02-24 12:30 | disposition home or self-care (01) | DRG 202 ==
LOC: ER 18:35 → 4TH 02-23 00:02 → OBSVTOIN 02-23 12:45
PROVIDERS: ADMIT Internal Medicine; ATTEND Internal Medicine
DX: J20.8 Acute bronchitis due to other specified organisms (principal); J44.1 Chronic obstructive pulmonary disease with (acute) exacerbation; J44.0 Chronic obstructive pulmonary disease with (acute) lower respiratory infection; I48.91 Unspecified atrial fibrillation; E03.9 Hypothyroidism, unspecified; E78.5 Hyperlipidemia, unspecified; Z85.72 Personal history of non-Hodgkin lymphomas; Z20.822 Contact with and (suspected) exposure to COVID-19
CPT/HCPCS: 36415; 71045; 80048; 80053; 81003; 81015; 83605; 83735; 83880; 84132; 84484; 85025; 85610; 85730; 87040; 87804; 93005; 93306; 99283; G0378; J1940; J2920; J3480; U0003

== ENCOUNTER 2022-07-20 18:17 | Observation (INO) | payer OTHER ==
--- OUTSIDE RECORDS SUMMARY | 2022-07-20 18:22 | XMS REPORT | Continuity of Care Document ---
:1955 Author Organization [facility] t Address [address] [place] [address] Care Team Providers Name Role Phone [phone] Primary Care Physician Unavailable SYSTEM, PROVIDER NOT IN Attending Clinician Unavailable ORALIA CHAPIN Attending Clinician Unavailable Nurse, [facility] Attending Clinician Unavailable Unknown, Attending Attending Clinician Unavailable Noel Duncan Attending Clinician UNKNOWN, ATTENDING Attending Clinician Unavailable NOEL HANNON Attending Clinician Unavailable Oralia Chapin MD Attending Clinician [phone], [facility] Attending Clinician Unavailable ORALIA CERVANTES Attending Clinician Unavailable Doctor Unassigned, [place] Attending Clinician Unavailable STAR TOURE Attending Clinician Unavailable Lisa Mota Attending Clinician ISIS CROCKETT Attending Clinician Unavailable LISA CARVAJAL Attending Clinician Unavailable Sanford Bonilla MD Attending Clinician Payers Payer Name Policy Type Policy Number Effective Date Expiration Date S ource MEDICARE PART A AND [id number] 2010 B 00:00:00 [place] [id number] 2012 TRADITIONAL STAR 00:00:00 NON SSI MEDICARE PART A \T\ [id number] 2010 B 00:00:00 MEDICAID [facility] [id number] 2018 00:00:00 Problems Condition Condition Condition Status Onset Resolution Last Treating Co mments Source Name Details Category Date Date Treatment Clinician Date 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 - ity of 00:00: [place] [facility] Hyperlipid Hyperlipid Disease Active U nivers emia emia 1- ity of 00:: [place] [facility] Hypertensi Hypertensi Disease Active U nivers on on 09-23 ity of 00:00: [place] [address] Medical Branch Thyroid Thyroid Disease Active Univers disease disease 09-23 ity of 00:00: [place] [facility] Atrial Atrial Disease Active Univers fibrillati fibrillati - it y of on on 00:00: [place] [address] Medical Branch Hypothyroi Hypothyroi Disease Active U nivers dism dism 09-23 ity of (acquired[place] [facility] Allergies, Adverse Reactions, Alerts Allergy Allergy Status Severity Reaction(s) Onset Inactive Treating Comm ents Source Name Type Date Date Clinician NO KNOWN Drug Active Univers ALLERGIE Class ity of S [facility] Social History Social Habit Start Date Stop Date Quantity Comments Source Exposure to 2022-07-10 2022-07-20 Not sure [facility] SARS-CoV-2 00:00:00 17:40:00 [facility] (event) [place] Tobacco use and 2022-07-20 2022-07-20 Smokeless tobacco Un iversity of exposure 00:00:00 00:00:00 non-user [facility] Alcohol intake 2022-07-20 2022-07-20 Current University 00:00:00 00:00:00 non-drinker of [facility] alcohol (finding) Branch Sex Ass[birth year] Universit y of 00:00:00 00:00:00 [facility] Smoking Status Start Date Stop Date Source Never smoked tobacco [facility] Medications Ordered Filled Start Stop Current Ordering Indication Dosage Frequency Signature Comments Components Source Medication Medication Date Date Medication? Clinician (SIG) Name Name ipratropium Yes [id number] 2{spray Use 2 Univers 21 mcg 7-08 } Sprays in ity of (0.03 %) 00:00: each [place] nasal spray 00 nostril 3 Med ical (three) Branch times daily. ipratropium Yes [id number] 2{spray Use 2 Univers 21 mcg 7-08 } Sprays in ity of (0.03 %) 00:00: each [place] nasal spray 00 nostril 3 Med ical (three) Branch times daily. ipratropium 0 Yes [id number] 2{spray Use 2 Univers 21 mcg 7-08 } Sprays in ity of (0.03 %) 00:00: each [place] nasal spray 00 nostril 3 Med ical (three) Branch times daily. valACYclovi 0 Yes [id number] 500mg Take 1 Univers r 500 mg 1-04 tablet by ity of tablet 00:00: mouth [place] 00 daily. Medical Branch levothyroxi 0 Yes [id number] 50ug Take 1 Univers ne 50 mcg 1-04 tablet by ity o f tablet 00:00: mouth [place] 00 every Medical morning. Branch valACYclovi 0 Yes [id number] 500mg Take 1 Univers r 500 mg 1-04 tablet by ity of tablet 00:00: mouth [place] 00 daily. Medical Branch levothyroxi 0 Yes [id number] 50ug Take 1 Univers ne 50 mcg 1-04 tablet by ity o f tablet 00:00: mouth [place] 00 every Medical morning. Branch valACYclovi 0 Yes [id number] 500mg Take 1 Univers r 500 mg 1-04 tablet by ity of tablet 00:00: mouth [place] 00 daily. Medical Branch levothyroxi 0 Yes [id number] 50ug Take 1 Univers ne 50 mcg 1-04 tablet by ity o f tablet 00:00: mouth [place] 00 every Medical morning. Branch NIFEdipine 2021-0 Yes 30mg Take 30 mg U nivers XL 30 mg 24 1-03 by mouth. ity of hr tablet 00:00: [place] 00 Medical Branch NIFEdipine 2021-0 Yes 30mg Take 30 mg U nivers XL 30 mg 24 1-03 by mouth. ity of hr tablet 00:00: [place] [facility] NIFEdipine 2021-0 Yes 30mg Take 30 mg U nivers XL 30 mg 24 1-03 by mouth. ity of hr tablet 00:00: [place] 00 Medical Branch metoprolol 2019-0 Yes [id number] 100mg Take 1 Univers tartrate 4-23 tablet by ity of 100 mg 00:00: mouth 2 [place] tablet 00 (two) Medical times Branch daily. lisinopril 2020-0 Yes [id number] 10mg Take 1 U nivers 10 mg 4-23 tablet by ity of tablet 00:00: mouth 2 [place] 00 (two) Medical times Branch daily. atorvastati 2020-0 Yes [id number] 40mg Take 1 Univers n 40 mg 4-23 tablet by ity of tablet 00:00: mouth at [place] 00 bedtime. Medical Branch rivaroxaban 2020-0 Yes [id number] 20mg Take 1 Univers (XARELTO) 4-23 tablet by ity o f 20 mg 00:00: mouth [place] tablet 00 daily. For Medical atrial Branch fibrillati on. metoprolol 2020-0 Yes [id number] 100mg Take 1 Univers tartrate 4-23 tablet by ity of 100 mg 00:00: mouth 2 [place] tablet 00 (two) Medical times Branch daily. lisinopril 2020-0 Yes [id number] 10mg Take 1 U nivers 10 mg 4-23 tablet by ity of tablet 00:00: mouth 2 [place] 00 (two) Medical times Branch daily. atorvastati 2020-0 Yes [id number] 40mg Take 1 Univers n 40 mg 4-23 tablet by ity of tablet 00:00: mouth at [place] 00 bedtime. Medical Branch rivaroxaban 2020-0 Yes [id number] 20mg Take 1 Univers (XARELTO) 4-23 tablet by ity o f 20 mg 00:00: mouth [place] tablet 00 daily. For Medical atrial Branch fibrillati on. metoprolol 2020-0 Yes [id number] 100mg Take 1 Univers tartrate 4-23 tablet by ity of 100 mg 00:00: mouth 2 [place] tablet 00 (two) Medical times Branch daily. lisinopril 2020-0 Yes [id number] 10mg Take 1 U nivers 10 mg 4-23 tablet by ity of tablet 00:00: mouth 2 [place] 00 (two) Medical times Branch daily. atorvastati 2020-0 Yes [id number] 40mg Take 1 Univers n 40 mg 4-23 tablet by ity of tablet 00:00: mouth at [place] 00 bedtime. Medical Branch rivaroxaban 2020-0 Yes [id number] 20mg Take 1 Univers (XARELTO) 4-23 tablet by ity o f 20 mg 00:00: mouth [place] tablet 00 daily. For Medical atrial Branch fibrillati on. Immunizations Ordered Filled Immunization Date Status Comments Sourc e Immunization Name Name SARS-COV-2 COVID-19 2021-01-07 Completed Unive rsity of MODERNA VACCINE 00:00:00 [place] Med ical Branch SARS-COV-2 COVID-19 2021-01-07 Completed Unive rsity of MODERNA VACCINE 00:00:00 [place] Med ical Branch SARS-COV-2 COVID-19 2021-01-07 Completed Unive rsity of MODERNA 12+ YRS 00:00:00 [place] [facility] ical VACCINE Branch SARS-COV-2 COVID-19 2020-12-04 Completed Unive rsity of MODERNA VACCINE 00:00:00 [place] Med ical Branch SARS-COV-2 COVID-19 2020-12-04 Completed Unive rsity of MODERNA VACCINE 00:00:00 [facility] ical Branch SARS-COV-2 COVID-19 2020-12-04 Completed Unive rsity of MODERNA 12+ YRS 00:00:00 [facility] ical VACCINE Branch Vital Signs Vital Name Observation Time Observation Value Comments Source Systolic blood 2022-07-20 23:09:00 136 mm[Hg] Univer sity of pressure [facility] Diastolic blood 2022-07-20 23:09:00 87 mm[Hg] Unive rsity of pressure [facility] Heart rate 2022-07-20 23:09:00 105 /min [facility] Body temperature 2022-07-20 23:09:00 39.5 Carie [facility] Respiratory rate 2022-07-20 23:09:00 20 /min [facility] Body height 2022-07-20 23:09:00 188 cm [facility] Body weight 2022-07-20 23:09:00 131.798 kg [facility] BMI 2022-07-20 23:09:00 37.31 kg/m2 [facility] Oxygen saturation in 2022-07-20 23:09:00 94 /min [facility] Arterial blood by [facility] Pulse oximetry Branch Systolic blood 2022-03-27 15:40:00 118 mm[Hg] Univer sity of pressure [facility] Diastolic blood 2022-03-27 15:40:00 81 mm[Hg] Unive rsity of pressure [facility] Heart rate 2022-03-27 15:40:00 87 /min [facility] Body temperature 2022-03-27 15:40:00 36.33 Carie [facility] Respiratory rate 2022-03-27 15:40:00 18 /min [facility] Body height 2022-03-27 15:40:00 188 cm [facility] Body weight 2022-03-27 15:40:00 130.636 kg [facility] BMI 2022-03-27 15:40:00 36.98 kg/m2 [facility] Oxygen saturation in 2022-03-27 15:40:00 97 /min [facility] Arterial blood by [facility] Pulse oximetry Branch WEIGHT 2020-09-18 11:08:08 135.7 kg Procedures This patient has no known procedures. Encounters Start End Encounter Admission Attending Care Care Encounter Source Date/Time Date/Time Type Type Clinicians Facility Department ID 2022-03-02 Outpatient SYSTEM, [facility] [id number] 15:26:50 PROVIDER Kelechi o n 2021-10-23 Outpatient [facility] [id number] 17:59:44 Anderso n 2021-10-23 Outpatient [facility]RIK ROWLEY [id number] 17:59:43 Anderso n 2021-10-23 Outpatient [facility] [id number] 17:59:41 Anderso n 2023-03-29 2023-03-29 Outpatient R TAVARES, [facility] [id number] Univers 09:00:00 09:00:00 ORALIA benson [facility] 2022-07-20 2022-07-20 Nurse Nurse, [facility] 1.2.840.114 [id number] Univers 17:30:00 17:50:00 Visit Unknown, Attending HEALTH [id number] Noel [place] [id number] [place] MARITZA?BLEA [phone] [facility] [address] MEDICAL OFFICE BUILDING 2022-07-20 2022-07-20 Outpatient R AIDEN, [facility] [id number] Univers 17:40:00 17:40:00 ATTENDING kelley [facility] 2022-07-20 2022-07-20 Outpatient R PARVEZ [facility] [id number] Univers 17:30:00 17:30:00 NOEL mendoza [facility] 2022-03-27 2022-03-27 [facility] 1.2.840.114 [id number] Univers 10:00:00 12:01:45 Visit Oralia CLARKE [id number] ity [facility] [id number] [id number] [address] 2022-03-27 2022-03-27 Outpatient R TAVARES [facility] [id number] Univers 10:00:00 12:01:45 ORALIA benson [facility] 2022-03-27 2022-03-27 [facility] 1.2.840.114 [id number] Univers 10:20:00 11:59:29 Visit Oralia CLARKE [id number] ity [facility] [id number] [id number] [address] 2022-03-27 2022-03-27 [facility] [id number] Univers 10:20:00 10:20:00 ORALIA benson [facility] 2022-03-27 2022-03-27 Outpatient R TAVARES [facility] [id number] Univers 10:00:00 10:00:00 [facility] 2022-[facility]-16 2022-03-16 [employer] Machine Operator 2, Adc Lab [facility] 1.2.840.114 [id number] Univers 10:00:00 10:15:00 Visit Oralia Chapin 350.1. [id number] ity of [facility] [id number] [id number] [facility] [address] [facility] 2022-03-16 2022-03-16 [facility] [id number] Univers 10:00:00 10:00:00 ORALIA benson [facility] 2021-10-21 2021-10-21 Outpatient NENO CERVANTES [facility] MDA [id number] 15:29:54 15:47:43 ORALIA Ashley rso n 2021-10-07 2021-10-07 Outpatient NENO CERVANTES [facility] MDA [id number] 15:00:00 15:00:00 ORALIA jadeo n 2021-09-23 2021-09-23 Out[facility] [id number] Univers 10:20:00 11:30:10 ORALIA benson [facility] 2021-09-23 2021-09-23 [facility] 1.2.840.114 [id number] Univers 10:20:00 11:30:10 Visit [id number] [facility] 4.2.7.2.686 [place] PROFESSIO [phone] Id dic[address] 2021-09-23 2021-09-23 [facility]patient [facility] [id number] Univers 10:20:00 10:20:00 ORALIA benson [facility] 2021-09-23 2021-09-23 Orders Doctor JUNIOR 1.2.840.114 [id number] Univers 00:00:00 00:00:00 Only Unassigned, BREANNE [id number] ity of [facility] 4.2.7.2.686 Zander as [id number] [address] 2021-09-22 2021-09-22 Outpatient NENO TOURE MDA MDA [id number] 12:15:25 23:59:00 STAR márquez 2021-09-22 2021-09-22 Outpatient NENO TOURE MDA MDA [id number] 12:37:55 14:29:15 STAR martin n 2021-09-16 2021-09-16 Outpatient [facility] [id number] Univers 10:00:00 10:00:00 ORALIA benson [facility] 2021-07-09 2021-07-09 [facility] 1.2.840.114 [id number] Univers 00:00:00 00:00:00 Lisa Clarke [id number] ity of [id number] [id number] Id dic[address] 2021-07-07 2021-07-07 [facility] 1.2.840.114 [id number] Univers 00:00:00 00:00:00 Oralia Clarke [id number] it[id number] [phone] [address] 2021-03-19 2021-03-19 Outpatient NENO CROCKETT [facility] MDA [id number] 09:52:13 23:59:00 ISIS márquez 2021-03-19 2021-03-19 Outpatient NENO CROCKETT [facility] MDA [id number] 11:30:44 13:01:33 ISIS márquez 2021-03-17 2021-03-17 [facility] [id number] Univers 14:00:00 14:00:00 LISA mendoza [facility] 2020-09-18 2020-09-18 Outpatient NENO CERVANTES [facility]K MDA [id number] 10:00:00 23:59:00 ORALIA márquez 2020-09-18 2020-09-18 Outpatient NENO CERVANTES [facility] MDA [id number] 10:49:19 11:32:41 ORALIA pritchett n 2020-01-11 2020-01-11 [facility] 1.2.840.114 [id number] 07:56:08 10:29:17 ne Visit Oralia Clarke [id number] [place] [id number] Professio [id number] [address] 2020-01-11 2020-01-11 [facility]patient [facility] [id number] [facility] 08:40:00 08:40:00 ORALIA benson [facility] 2020-01-02 2020-01-02 Sanford Pittman [facility] 1.2.840.114 [id number] 00:00:00 00:00:00 C [place] [id number] [place] [id number] Professio [id number] [address] 2019-12-25 2019-12-25 Sanford Pittman [facility] 1.2.840.114 [id number] 00:00:00 00:00:00 C [place] [id number] [place] [id number] Professio [id number] [address] 2019-04-25 2019-04-25 Sanford Castillo 1.2.840.114 [id number] 00:00:00 00:00:00 C [place] [id number] Universal [id number] [id number] Results This patient has no known results.
[2022-07-20] MEDS ORDERED: IBUPROFEN 400 MG TAB ONE (18:37)
[2022-07-20 19:14] LABS: Absolute Lymphocytes (CBC) 0.2 K/uL (0.7-4.9); Hematocrit 38.2 % (39.6-49.0); Lymphocytes % 3.3 % (15.3-44.8); MCV 91.7 fL (80-100); MPV 7.8 fL (7.6-11.3); RBC Red Blood Cell Count 4.17 M/uL (4.33-5.43)
[2022-07-20 19:20] LABS: Protime INR 1.6
[2022-07-20 19:32] LABS: Albumin 3.7 g/dL (3.4-5.0); Bilirubin Total 0.7 mg/dL (0.2-1.0); Potassium 3.4 mmol/L (3.5-5.1); Protein, Total 7.8 g/dL (6.4-8.2)
--- NOTE | 2022-07-20 19:34 | RAD REPORT ---
EXAM DESCRIPTION: RAD - Chest Single View - 07/20/2022 7:16 pm CLINICAL HISTORY: SOB COMPARISON: Portable 02/22/2022 TECHNIQUE: AP portable chest image was obtained 07/20/2022 7:16 pm . FINDINGS: Lung volumes are low accentuating bibasilar lung markings. Significant interstitial edema or infiltrate is doubtful. No consolidation. No significant failure or volume overload suspected. Heart and vasculature are normal. No measurable pleural effusion and no pneumothorax. No acute bony abnormality seen. No acute aortic findings suspected. IMPRESSION: No acute cardiopulmonary process. Chest is not substantially different from comparison.
[2022-07-20] MEDS ORDERED: NA CHLORIDE 0.9% 50 ML IV ONE (19:39)
[2022-07-20] MEDS ORDERED: CEFTRIAXONE 1000 MG/VIAL ONE (19:39)
[2022-07-20] MEDS ORDERED: PROMETHAZINE 25 MG TABLET ONE (20:24)
[2022-07-20] MEDS ORDERED: OSELTAMIVIR 75 MG CAP ONE (20:24)
--- NOTE | 2022-07-20 21:16 | ER ---
Nurse's Notes [facility] Name: Marbin Montero Age: 66 yrs Sex: Male : 1955 Arrival Date: 07/20/2022 Time: 18:22 Bed 4 Private MD: Diagnosis: Influenza due to identified novel influenza A virus;Hypoxemia Presentation: 07/20 18:38 Chief complaint: Patient states: Pt reports fever and cough with increasing SOB since kb3 Wednesday. Coronavirus screen: Vaccine status: Patient reports receiving the 2nd dose of the covid vaccine. Client denies travel out of the [place] in the last 14 days. Ebola Screen: Patient negative for fever greater than or equal to 101.5 degrees Fahrenheit, and additional compatible Ebola Virus Disease symptoms Patient denies exposure to infectious person. Patient denies travel to an Ebola-affected area in the 21 days before illness onset. Initial Sepsis Screen: Does the patient meet any 2 criteria? RR > 20 per min. Temp <36.0*C (96.8*F)) or > 38.3*C (100.9*F). HR > 90 bpm. Does the patient have a suspected source of infection? No. Patient's initial sepsis screen is negative. Risk Assessment: Do you want to hurt yourself or someone else? Patient reports no desire to harm self or others. Onset of symptoms was July 18, 2022. 18:38 Method Of Arrival: Wheelchair kb3 18:38 Acuity: OSCAR 3 kb3 Triage Assessment: 18:40 General: Appears in no apparent distress. Behavior is calm, cooperative. Pain: kb3 Complains of pain in head, chest, right arm, left arm, right leg and left leg Pain does not radiate. Pain currently is 6 out of 10 on a pain scale. Quality of pain is described as aching, Pain began 2-3 days ago. Historical: - Allergies: 18:40 No Known Allergies; kb3 - Home Meds: 18:40 atorvastatin 40 mg Oral tab 1 tab once daily [Active]; levothyroxine 50 mcg tab 1 tab kb3 once daily [Active]; lisinopril 10 mg Oral tab 1 tab twice a day [Active]; metoprolol tartrate 100 mg Oral tab 1 tab 2 times per day [Active]; Xarelto 20 mg Oral tab 1 tab once daily [Active]; nifedipine 30 mg Oral TbER 1 tab once daily [Active]; valacyclovir 500 mg Oral tab 1 tab once daily [Active]; - PMHx: 18:40 High Cholesterol; Hypertension; Thyroid problem; Lymphoma; kb3 - Immunization history:: Adult Immunizations up to date, Client reports receiving the 2nd dose of the Covid vaccine, Last tetanus immunization: up to date. - Social history:: Smoking status: Patient denies any tobacco usage or history of. Screenin:05 Abuse screen: Denies threats or abuse. Nutritional screening: No deficits noted. jd3 Tuberculosis screening: No symptoms or risk factors identified. Fall Risk IV access (20 points). Ambulatory Aid- None/Bed Rest/Nurse Assist (0 pts). Gait- Normal/Bed Rest/Wheelchair (0 pts) Mental Status- Oriented to own ability (0 pts). Total Bonner Fall Scale indicates No Risk (0-24 pts). Assessment: 19:20 General: Appears in no apparent distress. uncomfortable, Behavior is calm, cooperative, jb4 appropriate for age. Pain: Denies pain. Neuro: Level of Consciousness is awake, alert, obeys commands, Oriented to person, place, time, situation. Cardiovascular: Patient's skin is warm and dry. Respiratory: Airway is patent Respiratory effort is even, labored, Respiratory pattern is regular, symmetrical, tachypnea. GI: No signs and/or symptoms were reported involving the gastrointestinal system. : No signs and/or symptoms were reported regarding the genitourinary system. EENT: No signs and/or symptoms were reported regarding the EENT system. Derm: Skin is intact, Skin is dry, Skin is normal, Skin temperature is warm. Musculoskeletal: Circulation, motion, and sensation intact. Range of motion: intact in all extremities. 20:39 Reassessment: Patient appears in no apparent distress at this time. No changes from jb4 previously documented assessment. Patient and/or family updated on plan of care and expected duration. Pain level reassessed. 21:47 Reassessment: Patient appears in no apparent distress at this time. Patient and/or jb4 family updated on plan of care and expected duration. Pain level reassessed. Patient is alert, oriented x 3, equal unlabored respirations, skin warm/dry/pink. 22:13 Reassessment: attempted to call report, instructed to wait for call back. jb4 22:41 Reassessment: Patient appears in no apparent distress at this time. Patient and/or jb4 family updated on plan of care and expected duration. Pain level reassessed. Patient is alert, oriented x 3, equal unlabored respirations, skin warm/dry/pink. attempted to call report, instructed to wait for call back. Vital Signs: 18:38 BP 140 / 79; Pulse 96; Resp 22; Temp 103.1; Pulse Ox 93% ; Weight 131.54 kg; Height 6 kb3 ft. 2 in. (187.96 cm); Pain 5/10; 20:00 BP 123 / 73; Pulse 91; Resp 32; Pulse Ox 91% on R/A; jb4 21:02 BP 115 / 69; Pulse 86; Resp 26; Temp 98.7(O); Pulse Ox 96% on 2 lpm NC; jb4 21:47 BP 112 / 72; Pulse 93; Resp 20; Pulse Ox 94% on 2 lpm NC; jb4 22:41 BP 104 / 74; Pulse 88; Resp 20; Pulse Ox 96% on 2 lpm NC; jb4 18:38 Body Mass Index 37.23 (131.54 kg, 187.96 cm) kb3 20:00 Pt placed on 2L NC per providers orders. jb4 ED Course: 18:22 Patient arrived in ED. ja2 18:25 Lily Franco [facility]-C [facility] snw 18:25 Herman Solares MD is Attending Physician. snw 18:40 Triage completed. kb3 18:40 Arm band placed on right wrist. Patient placed in an exam room, on a stretcher, on kb3 cardiac cath lab manager, on pulse oximetry. 18:59 Inserted saline lock: 20 gauge in left antecubital area, using aseptic technique. Blood jd3 collected. 19:06 Patient has correct armband on for positive identification. Bed in low position. Call jd3 light in reach. Side rails up X 1. Adult w/ patient. Client placed on continuous cardiac and pulse oximetry monitoring. NIBP monitoring applied. stockroom attendant on. Pulse ox on. NIBP on. 19:17 Chest Single View XRAY In Process Unspecified. EDMS 19:40 Sanford Ojeda, RONALD is Primary Nurse. jb4 21:14 Roge Kennedy is Hospitalizing Provider. snw 23:12 No provider procedures requiring assistance completed. Patient admitted, IV remains in jb4 place. Administered Medications: 18:39 Drug: Motrin (ibuprofen) 800 mg Route: PO; iw 21:00 Follow up: Response: No adverse reaction; Marked relief of symptoms; Temperature is jb4 decreased 19:47 Drug: Rocephin - (cefTRIAXone) 1 grams Route: IVPB; Infused Over: 30 mins; Site: left jb4 antecubital; 20:17 Follow up: Response: No adverse reaction; IV Status: Infusion continued; IV Intake: 44erlb8 20:30 Drug: Tamiflu (oseltamivir) 75 mg Route: PO; jb4 21:00 Follow up: Response: No adverse reaction jb4 20:30 Drug: Phenergan (promethazine) 25 mg Route: PO; jb4 21:00 Follow up: Response: No adverse reaction jb4 Medication: 19:05 VIS not applicable for this client. jd3 Intake: 20:17 IV: 50ml; Total: 50ml. jb4 Outcome: 21:15 Decision to Hospitalize by Provider. snw 23:12 Admitted to Med/surg accompanied by tech, via wheelchair, room 211, with chart, Report jb4 called to RONALD Sanderson 23:12 Condition: stable 23:12 Discharge instructions given to patient, family, Instructed on the need for admit, Demonstrated understanding of instructions. 23:14 Patient left the ED. jb4 Signatures: Dispatcher [employer] EDMS Lily Franco, MATHEMATICAL ENGINEERING TECHNICIAN-C MATHEMATICAL ENGINEERING TECHNICIAN-Csnw Marilu Sotelo RN RN iw Bryson, James, RN RN jb4 Broderick Roland RN RN jd3 Alexander, Jessica ja2 Bradberry, Kelly, RN RN kb3 Corrections: (The following items were deleted from the chart) 20:41 20:00 BP 123 / 73; Pulse 91bpm; Resp 32bpm; Pulse Ox 91% RA; jb4 jb4
--- NOTE | 2022-07-20 21:16 | EDPHYS ---
Physician Documentation [facility] Name: Marbin Montero Age: 66 yrs Sex: Male : 1955 Arrival Date: 07/20/2022 Time: 18:22 Bed 4 Private MD: ED Physician Herman Solares HPI: 07/20 18:36 This 66 yrs old Black Male presents to ER via Unassigned with complaints of Low O2, snw Fever. 18:36 The patient has shortness of breath at rest. Onset: The symptoms/episode began/occurred snw suddenly, 2 day(s) ago, and became worse today, and became persistent. Duration: The symptoms are continuous. The patient's shortness of breath has no apparent modifying factors. The patient's shortness of breath is aggravated by light activity. Associated signs and symptoms: Pertinent positives: non-productive cough, fever. Severity of symptoms: At their worst the symptoms were moderate. The patient has not experienced similar symptoms in the past. The patient has been recently seen at an urgent care, just prior to arrival, for similar complaints, and was sent to the [facility] Emergency Department for further evaluation. Historical: - Allergies: 18:40 No Known Allergies; kb3 - Home Meds: 18:40 atorvastatin 40 mg Oral tab 1 tab once daily [Active]; levothyroxine 50 mcg tab 1 tab kb3 once daily [Active]; lisinopril 10 mg Oral tab 1 tab twice a day [Active]; metoprolol tartrate 100 mg Oral tab 1 tab 2 times per day [Active]; Xarelto 20 mg Oral tab 1 tab once daily [Active]; nifedipine 30 mg Oral TbER 1 tab once daily [Active]; valacyclovir 500 mg Oral tab 1 tab once daily [Active]; - PMHx: 18:40 High Cholesterol; Hypertension; Thyroid problem; Lymphoma; kb3 - Immunization history:: Adult Immunizations up to date, Client reports receiving the 2nd dose of the Covid vaccine, Last tetanus immunization: up to date. - Social history:: Smoking status: Patient denies any tobacco usage or history of. ROS: 18:35 Eyes: Negative for injury, pain, redness, and discharge, ENT: Negative for injury, snw pain, and discharge, Neck: Negative for injury, pain, and swelling, Cardiovascular: Negative for chest pain, palpitations, and edema. 18:35 Abdomen/GI: Negative for abdominal pain, nausea, vomiting, diarrhea, and constipation, Back: Negative for injury and pain, : Negative for injury, bleeding, discharge, and swelling, MS/Extremity: Negative for injury and deformity, Skin: Negative for injury, rash, and discoloration, Neuro: Negative for headache, weakness, numbness, tingling, and seizure, Psych: Negative for depression, anxiety, suicide ideation, homicidal ideation, and hallucinations. 18:35 Constitutional: Positive for body aches, chills, fatigue, fever, malaise. 18:35 Respiratory: Positive for cough, shortness of breath. Exam: 18:34 Head/Face: Normocephalic, atraumatic. Eyes: Pupils equal round and reactive to light, snw extra-ocular motions intact. Lids and lashes normal. Conjunctiva and sclera are non-icteric and not injected. Cornea within normal limits. Periorbital areas with no swelling, redness, or edema. ENT: Nares patent. No nasal discharge, no septal abnormalities noted. Tympanic membranes are normal and external auditory canals are clear. Oropharynx with no redness, swelling, or masses, exudates, or evidence of obstruction, uvula midline. Mucous membranes moist. Neck: Trachea midline, no thyromegaly or masses palpated, and no cervical lymphadenopathy. Supple, full range of motion without nuchal rigidity, or vertebral point tenderness. No Meningismus. Chest/axilla: Normal chest wall appearance and motion. Nontender with no deformity. No lesions are appreciated. 18:34 Abdomen/GI: Soft, non-tender, with normal bowel sounds. No distension or tympany. No guarding or rebound. No evidence of tenderness throughout. Back: No spinal tenderness. No costovertebral tenderness. Full range of motion. Skin: Warm, dry with normal turgor. Normal color with no rashes, no lesions, and no evidence of cellulitis. MS/ Extremity: Pulses equal, no cyanosis. Neurovascular intact. Full, normal range of motion. Neuro: Awake and alert, GCS 15, oriented to person, place, time, and situation. Cranial nerves II-XII grossly intact. Motor strength 5/5 in all extremities. Sensory grossly intact. Cerebellar exam normal. Normal gait. 18:34 Constitutional: The patient appears alert, awake, uncomfortable. 18:34 Cardiovascular: Rate: tachycardic, Rhythm: regular. 18:34 Respiratory: mild respiratory distress is noted, moderate respiratory distress is noted, Respirations: labored breathing, intercostal retractions, shallow respirations, tachypnea, Breath sounds: bronchial sounds, that are moderate, decreased breath sounds. Vital Signs: 18:38 BP 140 / 79; Pulse 96; Resp 22; Temp 103.1; Pulse Ox 93% ; Weight 131.54 kg; Height 6 kb3 ft. 2 in. (187.96 cm); Pain 5/10; 20:00 BP 123 / 73; Pulse 91; Resp 32; Pulse Ox 91% on R/A; jb4 21:02 BP 115 / 69; Pulse 86; Resp 26; Temp 98.7(O); Pulse Ox 96% on 2 lpm NC; jb4 21:47 BP 112 / 72; Pulse 93; Resp 20; Pulse Ox 94% on 2 lpm NC; jb4 22:41 BP 104 / 74; Pulse 88; Resp 20; Pulse Ox 96% on 2 lpm NC; jb4 18:38 Body Mass Index 37.23 (131.54 kg, 187.96 cm) kb3 20:00 Pt placed on 2L NC per providers orders. jb4 MDM: 18:34 Patient medically screened. snw 20:27 Data reviewed: vital signs, nurses notes. Data interpreted: Pulse oximetry: on room air snw is 91 %. Interpretation: hypoxia. Plan: O2 by NC applied. Counseling: I had a detailed discussion with the patient and/or guardian regarding: the historical points, exam findings, and any diagnostic results supporting the discharge/admit diagnosis, lab results, radiology results, the need for further work-up and treatment in the hospital. Physician consultation: Elmira Peguero PA-C was called at 20:28, regarding admission, to the telemetry unit. 07/20 18:33 Order name: Blood Culture Adult (2) snw 07/20 18:33 Order name: CBC with Diff; Complete Time: 19:15 snw 07/20 18:33 Order name: CMP; Complete Time: 19:34 snw 07/20 18:33 Order name: Lactate; Complete Time: 20:10 snw 07/20 18:33 Order name: Protime (+inr); Complete Time: 19:24 snw 07/20 18:33 Order name: Ptt, Activated; Complete Time: 19:24 snw 07/20 18:33 Order name: Chest Single View XRAY; Complete Time: 19:35 snw 07/20 18:33 Order name: Flu; Complete Time: 19:54 snw 07/20 19:30 Order name: SARS-COV-2 RT PCR (Document "Date of Onset" if Symptomatic); Complete Time: snw 20:28 07/20 18:33 Order name: Accucheck; Complete Time: 19:07 snw 07/20 18:33 Order name: Cardiac monitoring; Complete Time: 18:47 snw 07/20 18:33 Order name: EKG - Nurse/Tech; Complete Time: 18:47 snw 07/20 18:33 Order name: IV Saline Lock - Large Bore; Complete Time: 19:04 snw 07/20 18:33 Order name: Labs collected and sent; Complete Time: 19:04 snw 07/20 18:33 Order name: O2 Per Protocol; Complete Time: 18:34 snw 07/20 18:33 Order name: O2 Sat Monitoring; Complete Time: 18:34 snw 07/20 18:33 Order name: Vital Signs; Complete Time: 18:47 snw 07/20 19:55 Order name: Recheck VS; Complete Time: 20:19 snw EC:45 Rate is 105 beats/min. Rhythm is irregularly irregular. QRS [place] is Normal. Clinical snw impression: Atrial Fibrillation. Administered Medications: 18:39 Drug: Motrin (ibuprofen) 800 mg Route: PO; iw 21:00 Follow up: Response: No adverse reaction; Marked relief of symptoms; Temperature is jb4 decreased 19:47 Drug: Rocephin - (cefTRIAXone) 1 grams Route: IVPB; Infused Over: 30 mins; Site: left jb4 antecubital; 20:17 Follow up: Response: No adverse reaction; IV Status: Infusion continued; IV Intake: [id number] 20:30 Drug: Tamiflu (oseltamivir) 75 mg Route: PO; jb4 21:00 Follow up: Response: No adverse reaction jb4 20:30 Drug: Phenergan (promethazine) 25 mg Route: PO; jb4 21:00 Follow up: Response: No adverse reaction jb4 Disposition Summary: 07/20/22 21:15 Hospitalization Ordered Hospitalization Status: Observation snw Provider: Roge Kennedy snw Location: Telemetry/MedSurg (observation) snw Condition: Stable snw Problem: new snw Symptoms: have improved snw Bed/Room Type: Standard snw Room Assignment: 211(07/20/22 21:35) cg Diagnosis - Influenza due to identified novel influenza A virus snw - Hypoxemia snw Forms: - Medication Reconciliation Form snw - SBAR form snw Signatures: Dispatcher [employer] EDMS Lily Franco, SOCIAL GROUP WORKER-C SOCIAL GROUP WORKER-Csnw Marilu Sotelo RN RONALD iw Felicita Mclaughlin RN RN cg Sanford Ojeda RN RN jb4 Ellie Herbert RN RN kb3 Corrections: (The following items were deleted from the chart) 21:35 21:15 snw cg
--- NOTE | 2022-07-20 21:30 | P.HP ---
Certification for Inpatient Patient admitted to: Observation With expected LOS: <2 Midnights Patient will require the following post-hospital care: None Practitioner: I am a practitioner with admitting privileges, knowledge of patient current condition, hospital course, and medical plan of care. Services: Services provided to patient in accordance with Admission requirements found in Title 42 Section 412.3 of the Code of Federal Regulations Patient History Date of Service: 07/20/22 Reason for admission: Influenza A History of Present Illness: Patient is a 66-year-old male with history of A. fib on xarelto, lymphoma in remission, hypertension, hyperlipidemia and COPD who presented to the ED with complaints of fever, cough, and shortness of breath for 2 days now. He was noted to be tachycardic, tachypneic, febrile, 92% on RA. He tested positive for influenza A. No other significant lab abnormalities. Latate WNL. He was given ibuprofen, rocephin, tamiflu, and supplemental O2 in ED. Patient is admitted for further management. Allergies No Known Allergies Allergy (Verified 01/06/16 22:23) Home medications list reviewed: Yes Home Medications: Atorvastatin Calcium [Lipitor] 40 mg PO BEDTIME 01/06/16 Levothyroxine [Synthroid*] 50 mcg PO [id number] 01/06/16 Metoprolol Tartrate [Lopressor] 100 mg PO BID 01/06/16 Valacyclovir [Valtrex*] 500 mg PO DAILY 01/06/16 Rivaroxaban [Xarelto] 20 mg PO DAILY AT SUPPER #30 tablet 01/07/16 Lisinopril [Zestril] 1 tab PO DAILY 02/23/22 Nifedipine [Nifedipine ER] 1 tab PO DAILY 02/23/22 Albuterol Inhaler [Ventolin Inhaler*] 2 puff IH Q6H PRN #1 hfa.aer.ad 02/24/22 Furosemide [Lasix] 20 mg PO DAILY 14 Days #14 tab 02/24/22 Potassium Chloride [Klor-Con M20] 20 meq PO DAILY 14 Days #14 tab.er.prt 02/24/22 predniSONE [Deltasone] 20 mg PO BID 4 Days #8 tab 02/24/22 - Past Medical/Surgical History Diabetic: No -: Afib -: Hypertension -: Lymphoma in remission -: COPD Past Surgical History: Patient denies surgical history Psychosocial/ Personal History: Patient is . - Family History Sister -: Hypertension - Social History Smoking Status: Former smoker Alcohol use: No CD- Drugs: No Caffeine use: No Place of Residence: Home Review of Systems Respiratory: Cough, Shortness of Breath, Wheezing Physical Examination - Physical Exam General: Alert, In no apparent distress HEENT: Atraumatic, PERRLA, EOMI, Sclerae nonicteric Neck: Supple, 2+ carotid pulse no bruit, No LAD, Without JVD or thyroid abnormality Respiratory: Expiratory wheezes Cardiovascular: Regular rate/rhythm, Normal S1 S2 Gastrointestinal: Normal bowel sounds, No tenderness Musculoskeletal: No tenderness Integumentary: No rashes Neurological: Normal speech, Normal strength at 5/5 x4 extr, Normal tone, Normal affect - Studies Laboratory Data (last 24 hrs) 07/20/22 18:59: PT 17.6 H, INR 1.60, APTT 32.1 07/20/22 18:59: Sodium 140, Potassium 3.4 L, BUN 19 H, Creatinine 1.41 H, Gl ucose 110 H, Total Bilirubin 0.7, AST 37, ALT 21, Alkaline Phosphatase 39 L 07/20/22 18:59: WBC 5.20, Hgb 12.5 L, Hct 38.2 L, Plt Count 115 L Microbiology Data (last 24 hrs): 07/20/22 18:59 Nasopharnyx Influenza Type A Antigen Screen - Final 07/20/22 18:59 Nasopharnyx Influenza Type B Antigen Screen - Final Assessment and Plan - Problems (Diagnosis) (1) Influenza A Current Visit: Yes Status: Acute (2) Acute respiratory failure with hypoxia Current Visit: Yes Status: Acute (3) Afib Current Visit: Yes Status: Chronic Qualifiers: Atrial fibrillation type: paroxysmal Qualified Code(s): I48.0 - Paroxysmal atrial fibrillation (4) Hypertension Current Visit: Yes Status: Chronic Qualifiers: Hypertension type: primary hypertension Qualified Code(s): I10 - Essential (primary) hypertension (5) COPD (chronic obstructive pulmonary disease) Current Visit: Yes Status: Chronic Qualifiers: COPD type: unspecified COPD Qualified Code(s): J44.9 - Chronic obstructive pulmonary disease, unspecified (6) Sepsis Current Visit: Yes Status: Acute Qualifiers: Sepsis type: sepsis due to unspecified organism Sepsis acute organ dysfunction status: without acute organ dysfunction Qualified Code(s): A41.9 - Sepsis, unspecified organism - Plan -Patient is admitted for observation. -Meeting sepsis criteria, although viral in origin. Blood cultures obtained. Given 1 dose Rocephin in ED. Lactate WNL. -Patient requiring 2L NC O2. Titrate and wean as tolerated. -Breathing treatments PRN. Incentive spirometry -Tamiflu BID -Monitor and replete electrolytes per protocol -Reconcile and continue home medications -Home xarelto for VTE prophylaxis -Full code Discharge Plan: Home Plan to discharge in: 24 Hours - Advance Directives Does patient have a Living Will: No Does patient have a Durable POA for Healthcare: No - Code Status/Comfort Care Code Status Assessed: Yes (Full) Critical Care: No Time Spent Managing Pts Care (In Minutes): 50
[2022-07-20] MEDS ORDERED: ALBUTEROL 2.5 MG/3 ML NEB SOL NEB PRN (22:58)
[2022-07-20] MEDS ORDERED: ACETAMINOPHEN 500 MG TAB PO PRN (22:58)
[2022-07-20] MEDS ORDERED: ONDANSETRON 4 MG/2 ML VIAL IV PRN (22:58)
[2022-07-20] MEDS ORDERED: NS KCL 20MEQ 20 MEQ/1,000 ML BAG IV SCH (22:58)
[2022-07-20] MEDS: RIVAROXABAN 10 MG TABLET PO SCH (23:48)
[2022-07-21 03:20] VITALS: BMI 37.0
[2022-07-21 03:55] LABS: Absolute Lymphocytes (CBC) 0.2 K/uL (0.7-4.9); Hematocrit 37.6 % (39.6-49.0); Lymphocytes % 5.9 % (15.3-44.8); MCV 90.8 fL (80-100); MPV 7.7 fL (7.6-11.3); RBC Red Blood Cell Count 4.14 M/uL (4.33-5.43)
[2022-07-21 04:28] LABS: Phosphorus 3.9 mg/dL (2.5-4.9)
[2022-07-21 04:29] LABS: Potassium 3.3 mmol/L (3.5-5.1)
[2022-07-21 05:06] LABS: Blood Morphology Comment NOT SEEN (NOT SEEN); Platelet Estimate DECR; White Blood Cell Scan OK (OK)
[2022-07-21] MEDS ORDERED: POTASSIUM 25 MEQ EFFERV TAB PO ONE (05:54)
[2022-07-21] MEDS ORDERED: INFLUENZA VACCINE (for 6+ mo) 0.5 ML DOSE IMVAC ONE (08:00)
[2022-07-21] MEDS ORDERED: OSELTAMIVIR 75 MG CAP PO SCH (09:00)
--- NOTE | 2022-07-21 10:41 | P.DS ---
Admission Date: 07/20/22 Discharge Date: 07/21/22 Disposition: ROUTINE DISCHARGE Discharge Condition: FAIR Reason for Admission: Influenza A - Problems (1) Acute respiratory failure with hypoxia Current Visit: Yes Status: Acute (2) COPD (chronic obstructive pulmonary disease) Current Visit: Yes Status: Chronic Qualifiers: COPD type: unspecified COPD Qualified Code(s): J44.9 - Chronic obstructive pulmonary disease, unspecified (3) Hypertension Current Visit: Yes Status: Chronic Qualifiers: Hypertension type: primary hypertension Qualified Code(s): I10 - Essential (primary) hypertension Brief History of Present Illness: Patient is a 66-year-old male with history of A. fib on xarelto, lymphoma in remission, hypertension, hyperlipidemia and COPD who presented to the ED with complaints of fever, cough, and shortness of breath for 2 days now. He was noted to be tachycardic, tachypneic, febrile, 92% on RA. He tested positive for influenza A. No other significant lab abnormalities. Latate WNL. He was given ibuprofen, rocephin, tamiflu, and supplemental O2 in ED. Patient was hospitalized for further management. Hospital Course: Patient placed under observation on the medical floor and hydrated with IV fluid. Patient symptoms significantly improved, currently denies any symptoms. He has been maintained on 2 L oxygen by nasal cannula. Chest x-ray shows no infiltrate. Patient stated he uses oxygen at home. Patient able to ambulate, tolerated his meals. He is deemed stable for discharge. He is prescribed Tamiflu to continue treatment for influenza A. He may use oxygen as needed. Vital Signs/Physical Exam: Temp Pulse Resp BP Pulse Ox 97.9 F 92 H 16 125/78 100 07/21/22 08:00 07/21/22 08:00 07/21/22 08:00 07/21/22 08:00 07/21/22 08:00 General: Alert, In no apparent distress, Oriented x3 HEENT: Mucous membr. moist/pink Neck: Supple, JVD not distended Respiratory: Clear to auscultation bilaterally, Normal air movement Cardiovascular: No edema, Regular rate/rhythm, Normal S1 S2 Gastrointestinal: Normal bowel sounds, Soft and benign, Non-distended, No tenderness Musculoskeletal: No swelling Integumentary: No rashes, No erythema, No cyanosis Neurological: Normal strength at 5/5 x4 extr Laboratory Data at Discharge: WBC 4.00 K/uL (4.3-10.9) L 07/21/22 03:23 Hgb 12.5 g/dL (13.6-17.9) L 07/21/22 03:23 Hct 37.6 % (39.6-49.0) L 07/21/22 03:23 Plt Count 82 K/uL (152-406) L D 07/21/22 03:23 PT 17.6 SECONDS (9.5-12.5) H 07/20/22 18:59 INR 1.60 07/20/22 18:59 APTT 32.1 SECONDS (24.3-36.9) 07/20/22 18:59 Sodium 141 mmol/L (136-145) 07/21/22 03:23 Potassium 3.3 mmol/L (3.5-5.1) L 07/21/22 03:23 BUN 22 mg/dL (7-18) H 07/21/22 03:23 Creatinine 1.30 mg/dL (0.55-1.3) 07/21/22 03:23 Glucose 108 mg/dL (74-106) H 07/21/22 03:23 Phosphorus 3.9 mg/dL (2.5-4.9) 07/21/22 03:23 Magnesium 2.0 mg/dL (1.8-2.4) 07/21/22 03:23 Total Bilirubin 0.7 mg/dL (0.2-1.0) 07/20/22 18:59 AST 37 U/L (15-37) 07/20/22 18:59 ALT 21 U/L (12-78) 07/20/22 18:59 Alkaline Phosphatase 39 U/L (45-117) L 07/20/22 18:59 Home Medications: Atorvastatin Calcium [Lipitor] 40 mg PO BEDTIME 01/06/16 Levothyroxine [Synthroid*] 50 mcg PO [id number] 01/06/16 Metoprolol Tartrate [Lopressor] 100 mg PO BID 01/06/16 Valacyclovir [Valtrex*] 500 mg PO DAILY 01/06/16 Rivaroxaban [Xarelto] 20 mg PO DAILY AT SUPPER #30 tablet 01/07/16 Lisinopril [Zestril] 1 tab PO DAILY 02/23/22 Nifedipine [Nifedipine ER] 1 tab PO DAILY 02/23/22 Albuterol Inhaler [Ventolin Inhaler*] 2 puff IH Q6H PRN #1 hfa.aer.ad 02/24/22 Oseltamivir [Tamiflu*] 75 mg PO BID #10 cap 07/21/22 New Medications: Oseltamivir [Tamiflu*] 75 mg PO BID #10 cap Diet: AHA Activity: Ad miya Followup: NONE,NONE [Primary Care Provider] -
[2022-07-21] MEDS ORDERED: ALBUTEROL 2.5 MG/3 ML NEB SOL NEB PRN (14:00)
[2022-07-21 16:34] VITALS: O2SAT 98
[2022-07-21 17:09] VITALS: BP 131/67; TEMP 98.6
[2022-07-21] MEDS: RIVAROXABAN 10 MG TABLET PO SCH (17:51)
[2022-07-22 21:06] LABS: C.diff Antigen/Toxin Ag neg : Tox neg (NEG : NEG)
--- NOTE | 2022-07-23 06:04 | EKG ---
Test Date: 2022-07-20 Test Time: 18:44:10 Supervisor Mail [employer]: JUAN MEASUREMENT RESULTS: Intervals: Rate: 105 AL: QRSD: 90 QT: 348 QTc: 459 Reserve: P: AL: QRS: 16 T: 32 INTERPRETIVE STATEMENTS: Atrial fibrillation with rapid ventricular response Nonspecific ST abnormality, probably digitalis effect Abnormal ECG Compared to ECG 02/22/2022 20:25:07 No significant changes Electronically Signed On 07-23-22 06:00:24 CDT by Manuel Garcia
== END 2022-07-21 18:40 | disposition home or self-care (01) ==
LOC: ER 18:17 → ERHOLD 21:23 → 2ND 22:56
PROVIDERS: ADMIT Internal Medicine; ATTEND Internal Medicine
DX: J96.01 Acute respiratory failure with hypoxia (principal); J09.X2 Influenza due to identified novel influenza A virus with other respiratory manifestations; I48.0 Paroxysmal atrial fibrillation; I10 Essential (primary) hypertension; J44.9 Chronic obstructive pulmonary disease, unspecified; Z20.822 Contact with and (suspected) exposure to COVID-19
CPT/HCPCS: 96365; 93005; 87040 ×2; 85025 ×2; 80048; 36415; 83735; 84100; 84132; 85610; 83605; 85730; 87324; 80053; 87804 ×2; 71045; 94010; 94760 ×2; 99285; U0003; Q0169; J3480; G0378 ×2